=== PATIENT | male | born 1985 | race Caucasian/White ===

== ENCOUNTER → 2019-07-01 | Outpatient (CLI) | payer BC ==
--- NOTE | 2019-07-01 08:35 | US ---
EXAMINATION TYPE: US abdomen complete DATE OF EXAM: 07/01/2019 COMPARISON: NONE CLINICAL HISTORY: R94.5 Abn results liver function studies. Abnormal results of liver function studie s, patient states no other symptoms. EXAM MEASUREMENTS: Liver Length: 17.2 cm Gallbladder Wall: 0.2 cm CBD: 0.3 cm Spleen: 11.3 cm Right Kidney: 11.0 x 5.4 x 5.5 cm Left Kidney: 11.0 x 6.3 x 6.2 cm Pancreas: obscured by overlying midline bowel gas Liver: measures in upper limits of normal, heterogeneous, attenuating, decreased visualization of ve ssels Gallbladder: low level echoes seen within dependant portion of gallbladder, wall measures wnl Evidence for sonographic Schwab's sign: no CBD: visualized portions wnl, limited by overlying bowel gas Spleen: visualized portions wnl, limited by overlying bowel gas Right Kidney: wnl Left Kidney: wnl Upper IVC: wnl Abd Aorta: visualized portions wnl, limited by overlying midline bowel gas IMPRESSION: 1. Hepatomegaly with mild fatty infiltration
== END | disposition home or self-care (01) ==
LOC: RADUSWWP 07:14
PROVIDERS: ATTEND Family Medicine
DX: K76.0 Fatty (change of) liver, not elsewhere classified (principal); R16.0 Hepatomegaly, not elsewhere classified
CPT/HCPCS: 76700

== ENCOUNTER → 2021-08-07 | Outpatient (CLI) | payer BC ==
[2021-08-07 18:44] LABS: Basophils # (A) 0.08 X 10*3/uL (0.00-0.10); Basophils % (A) 0.8 %; Eosinophils # (A) 0.13 X 10*3/uL (0.04-0.35); Eosinophils % (A) 1.2 %; HGB 14.6 g/dL (13.0-17.0); Lymphocytes # (A) 2.56 X 10*3/uL (0.90-5.00); Lymphocytes % (A) 24.5 %; MCH 28.4 pg (27.0-32.0); MCHC 31.1 g/dL (32.0-37.0); MCV 91.4 fL (80.0-97.0); Mean Platelet Volume 9.2 fL (9.5-12.2); Monocytes # (A) 0.71 X 10*3/uL (0.20-1.00); Monocytes % (A) 6.8 %; Neutrophils # (A) 6.92 X 10*3/uL (1.80-7.70); Neutrophils % (A) 66.4 %; Platelet Count 356 X 10*3/uL (140-440); RBC 5.14 X 10*6/uL (4.40-5.60); RDW 13.1 % (11.5-14.5); WBC 10.43 X 10*3/uL (4.50-10.00)
[2021-08-07 20:05] LABS: African American GFR (CKD) 128.7 (60.0-200.0); Albumin 4.6 g/dL (3.8-4.9); Albumin/Globulin Ratio 1.7 (1.60-3.17); Anion Gap 15.8 mmol/L (4.00-12.00); BUN/Creat Ratio 16.44 Ratio (12.00-20.00); Blood Urea Nitrogen 14.8 mg/dL (9.0-27.0); C Reactive Protein 0.9 mg/dL (0.00-0.80); Calcium 9.9 mg/dL (8.7-10.3); Carbon Dioxide 21.2 mmol/L (21.6-31.8); Globulin 2.7 g/dL (1.6-3.3); Potassium 4.4 mmol/L (3.5-5.5); Total Bilirubin 0.4 mg/dL (0.30-1.20); Total Protein 7.3 g/dL (6.2-8.2)
[2021-08-07 20:21] LABS: Hepatitis A Antibody IgM Nonreactive (Nonreactive); Hepatitis B Core IgM Nonreactive (Nonreactive); Hepatitis B Surface Antigen Nonreactive (Nonreactive); Hepatitis C IgG Antibody Nonreactive (Nonreactive)
[2021-08-07 21:13] LABS: Erythrocyte Sedimentation Rate 16 mm/Hr (0-15)
== END | disposition home or self-care (01) ==
LOC: LABWHC1 10:08
PROVIDERS: ATTEND Nurse Practitioner Family
DX: K51.00 Ulcerative (chronic) pancolitis without complications (principal)
CPT/HCPCS: 36415; 80053; 80074; 85025; 85652; 86140

== ENCOUNTER → 2021-09-30 | Outpatient (CLI) | payer BC | END | disposition home or self-care (01) | LOC: LABWHC1 14:59 | PROVIDERS: ATTEND Internal Medicine Gastroenterology | DX: K51.00 Ulcerative (chronic) pancolitis without complications (principal) | CPT/HCPCS: 36415; 86480 ==

== ENCOUNTER 2023-02-28 04:37 | Emergency (ER) | payer BC ==
[2023-02-28 04:42] VITALS: RESP 18; TEMP 98.2
[2023-02-28] MEDS ORDERED: SODIUM CHLORIDE 0.9% 1,000 ML IV STA (04:50)
[2023-02-28] MEDS ORDERED: methylPREDNISolone SOD SUCCI 125 MG/2 ML VIAL IV STA (04:51)
[2023-02-28] MEDS ORDERED: HYDROmorphone 1 MG/ML 1 ML SYRINGE IVP STA (04:51)
--- NOTE | 2023-02-28 04:52 | ED ---
General Adult HPI - General Chief complaint: Abdominal Pain Stated complaint: ABD Pain Time Seen by Provider: 02/28/23 04:44 Source: patient, family, RN notes reviewed, old records reviewed Mode of arrival: wheelchair Limitations: no limitations - History of Present Illness Initial comments: 37-year-old male history of ulcerative colitis who follows with gastroenterology presenting with diffuse abdominal pain. Patient states for approximately one week he's had daily bloody bowel movements. He had gone to bed this evening with generalized abdominal pain which is worsened overnight. He's had an additional bright red rectal bleeding with a small amount of stool. No vomiting. No fever. The pain is generalized throughout his entire abdomen. - Related Data Previous Rx's Medication Instructions Recorded HYDROcodone/APAP 5-325MG [Carey 1 tab PO Q6HR PRN #12 tab 02/28/23 5-325] predniSONE [Deltasone] 40 mg PO DAILY 14 Days #28 tab 02/28/23 Allergies Allergy/AdvReac Type Severity Reaction Status Date / Time Iodinated Contrast Media AdvReac Vomiting Verified 02/28/23 05:37 Review of Systems ROS Statement: Those systems with pertinent positive or pertinent negative responses have been documented in the HPI. ROS Other: All systems not noted in ROS Statement are negative. Past Medical History Additional Past Medical History / Comment(s): Ulcerative colitis History of Any Multi-Drug Resistant Organisms: None Reported Past Psychological History: No Psychological Hx Reported Smoking Status: Never smoker Past Alcohol Use History: None Reported Past Drug Use History: None Reported General Exam Limitations: no limitations General appearance: alert, in no apparent distress Head exam: Present: atraumatic, normocephalic Eye exam: Present: normal appearance, PERRL ENT exam: Present: normal exam Neck exam: Present: normal inspection. Absent: tenderness, meningismus Respiratory exam: Present: normal lung sounds bilaterally. Absent: respiratory distress, wheezes Cardiovascular Exam: Present: regular rate, normal rhythm GI/Abdominal exam: Present: soft, distended, tenderness. Absent: guarding, rebound Extremities exam: Present: normal inspection, normal capillary refill. Absent: pedal edema Neurological exam: Present: alert, oriented X3, CN II-XII intact. Absent: motor sensory deficit Psychiatric exam: Present: normal affect, normal mood Skin exam: Present: warm, dry, intact. Absent: cyanosis, diaphoretic Course Vital Signs 02/28/23 04:40 Temperature 98.2 F Pulse Rate 85 Respiratory 18 Rate Blood Pressure 109/75 O2 Sat by Pulse 98 Oximetry - Reevaluation(s) Reevaluation #1: 02/28/23 07:00 Patient reevaluated, significantly improved Medical Decision Making - Medical Decision Making Was pt. sent in by a medical professional or institution (, YARELY, RETINAL ANGIOGRAPHER, urgent care, hospital, or long term...) When possible be specific @ -No Did you speak to anyone other than the patient for history (EMS, parent, family, police, friend...)? What history was obtained from this source @ -Pts Did you review nursing and triage notes (agree or disagree)? Why? @ -I reviewed and agree with nursing and triage notes Were old charts reviewed (outside hosp., previous admission, EMS record, old EKG, old radiological studies, urgent care reports/EKG's, long term records)? Report findings @ -No old charts were reviewed Differential Diagnosis (chest pain, altered mental status, abdominal pain women, abdominal pain men, vaginal bleeding, weakness, fever, dyspnea, syncope, headache, dizziness, GI bleed, back pain, seizure, CVA, palpatations, mental health, musculoskeletal)? @ Differential Abdominal Pain Men: Appendicitis, cholecystitis, diverticulosis, ischemic bowel, pancreatitis, hepatitis, UTI, gastroenteritis, AAA, incarcerated hernia, bowel obstruction, constipation, inflammatory bowel, hepatitis, peptic ulcer disease, splenic infarction, perforated viscus, testicular torsion, this is not meant to be an all-inclusive list EKG interpreted by me (3pts min.). @ -As above X-rays interpreted by me (1pt min.). @ -None done CT interpreted by me (1pt min.). @ -CT showing inflammation in the terminal ileum, cecum, base of the appendix and ascending colon. Agree with radiologist's interpretation. U/S interpreted by me (1pt. min.). @ -None done What testing was considered but not performed or refused? (CT, X-rays, U/S, labs)? Why? @ -None What meds were considered but not given or refused? Why? @ -None Did you discuss the management of the patient with other professionals (professionals i.e. , YARELY, RETINAL ANGIOGRAPHER, lab, RT, psych nurse, high school social science teacher, technical consultant, teacher, surveillance sensor officer, complex case manager)? Give summary @ -No Was smoking cessation discussed for >3mins.? @ -No Was critical care preformed (if so, how long)? @ -No Were there social determinants of health that impacted care today? How? (Homelessness, low income, unemployed, alcoholism, drug addiction, transportation, low edu. Level, literacy, decrease access to med. care, shelter, rehab)? @ -No Was there de-escalation of care discussed even if they declined (Discuss DNR or withdrawal of care, Hospice)? DNR status @ -No What co-morbidities impacted this encounter? (DM, HTN, Smoking, COPD, CAD, Cancer, CVA, ARF, Chemo, Hep., AIDS, mental health diagnosis, sleep apnea, morbid obesity)? @ Ulcerative colitis Was patient admitted / discharged? Hospital course, mention meds given and route, prescriptions, significant lab abnormalities, going to OR and other pertinent info. @ 37-year-old male with abdominal pain and rectal bleeding, symptoms have progressed over the past one week. Patient receives antiemetics, pain medication and IV steroids in the emergency department. He has a leukocytosis, hemoglobin is stable. He has normal electrolytes. CT shows inflammation within the terminal ileum, cecum and ascending colon. I did offer transfer for i npatient treatment and GI consultation to outside hospital given that we currently do not have GI coverage at this institution. The patient declines and would prefer a trial of oral steroids and pain management. He is given strict return parameters. 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 Undiagnosed new problem with uncertain prognosis? @ -No Drug Therapy requiring intensive monitoring for toxicity (Heparin, Nitro, Insulin, Cardizem)? @ -No Were any procedures done? @ -No Diagnosis/symptom? @ -Abdominal pain, ulcerative colitis Acute, or Chronic, or Acute on Chronic? @ Acute on chronic Uncomplicated (without systemic symptoms) or Complicated (systemic symptoms)? @ Complicated Side effects of treatment? @ -No Exacerbation, Progression, or Severe Exacerbation? @ Severe exacerbation Poses a threat to life or bodily function? How? (Chest pain, USA, SC, pneumonia, PE, COPD, DKA, ARF, appy, cholecystitis, CVA, Diverticulitis, Homicidal, Suicidal, threat to staff... and all critical care pts) @ -No - Lab Data Result diagrams: 02/28/23 05:01 02/28/23 05:01 Lab Results 02/28/23 02/28/23 02/28/23 Range/Units 05:01 05:01 05:01 WBC 14.9 H (3.8-10.6) k/uL RBC 5.14 (4.30-5.90) m/uL Hgb 13.1 (13.0-17.5) gm/dL Hct 40.7 (39.0-53.0) % MCV 79.2 L (80.0-100.0) fL MCH 25.4 (25.0-35.0) pg MCHC 32.1 (31.0-37.0) g/dL RDW 16.5 H (11.5-15.5) % Plt Count 401 (150-450) k/uL MPV 6.9 Neutrophils % 66 % Lymphocytes % 22 % Monocytes % 4 % Eosinophils % 6 % Basophils % 1 % Neutrophils # 9.8 H (1.3-7.7) k/uL Lymphocytes # 3.2 (1.0-4.8) k/uL Monocytes # 0.6 (0-1.0) k/uL Eosinophils # 0.9 H (0-0.7) k/uL Basophils # 0.1 (0-0.2) k/uL Anisocytosis Slight Microcytosis Slight PT 10.5 (9.0-12.0) sec INR 1.0 (<1.2) APTT 22.4 (22.0-30.0) sec Sodium 139 (137-145) mmol/L Potassium 4.0 (3.5-5.1) mmol/L Chloride 105 (98-107) mmol/L Carbon Dioxide 26 (22-30) mmol/L Anion Gap 8 mmol/L BUN 17 (9-20) mg/dL Creatinine 0.86 (0.66-1.25) mg/dL Est GFR (CKD-EPI)AfAm >90 (>60 ml/min/1.73 sqM) Est GFR (CKD-EPI)NonAf >90 (>60 ml/min/1.73 sqM) Glucose 118 H (74-99) mg/dL Plasma Lactic Acid Jonel (0.7-2.0) mmol/L Calcium 9.1 (8.4-10.2) mg/dL Total Bilirubin 0.3 (0.2-1.3) mg/dL AST 29 (17-59) U/L ALT 33 (4-49) U/L Alkaline Phosphatase 52 (38-126) U/L Total Protein 7.3 (6.3-8.2) g/dL Albumin 4.2 (3.5-5.0) g/dL Amylase 60 (30-110) U/L Lipase 189 (23-300) U/L 02/28/23 Range/Units 05:01 WBC (3.8-10.6) k/uL RBC (4.30-5.90) m/uL Hgb (13.0-17.5) gm/dL Hct (39.0-53.0) % MCV (80.0-100.0) fL MCH (25.0-35.0) pg MCHC (31.0-37.0) g/dL RDW (11.5-15.5) % Plt Count (150-450) k/uL MPV Neutrophils % % Lymphocytes % % Monocytes % % Eosinophils % % Basophils % % Neutrophils # (1.3-7.7) k/uL Lymphocytes # (1.0-4.8) k/uL Monocytes # (0-1.0) k/uL Eosinophils # (0-0.7) k/uL Basophils # (0-0.2) k/uL Anisocytosis Microcytosis PT (9.0-12.0) sec INR (<1.2) APTT (22.0-30.0) sec Sodium (137-145) mmol/L Potassium (3.5-5.1) mmol/L Chloride (98-107) mmol/L Carbon Dioxide (22-30) mmol/L Anion Gap mmol/L BUN (9-20) mg/dL Creatinine (0.66-1.25) mg/dL Est GFR (CKD-EPI)AfAm (>60 ml/min/1.73 sqM) Est GFR (CKD-EPI)NonAf (>60 ml/min/1.73 sqM) Glucose (74-99) mg/dL Plasma Lactic Acid Jonel 1.5 (0.7-2.0) mmol/L Calcium (8.4-10.2) mg/dL Total Bilirubin (0.2-1.3) mg/dL AST (17-59) U/L ALT (4-49) U/L Alkaline Phosphatase (38-126) U/L Total Protein (6.3-8.2) g/dL Albumin (3.5-5.0) g/dL Amylase (30-110) U/L Lipase (23-300) U/L Disposition Clinical Impression: Inflammatory bowel disease, Ulcerative colitis Disposition: HOME SELF-CARE Condition: Fair Instructions (If sedation given, give patient instructions): Ulcerative Colitis (ED) Prescriptions: predniSONE [Deltasone] 40 mg PO DAILY 14 Days #28 tab HYDROcodone/APAP 5-325MG [Carey 5-325] 1 tab PO Q6HR PRN #12 tab PRN Reason: Pain Is patient prescribed a controlled substance at d/c from ED?: No Referrals: Rachel Rincon DO [Primary Care Provider] - 1-2 days Sabrina Campos MD [STAFF PHYSICIAN] - 1-2 days Time of Disposition: 06:59
[2023-02-28] MEDS ORDERED: ONDANSETRON 4 MG/2 ML VIAL IVP STA (05:10)
[2023-02-28 05:15] LABS: ALT 33 U/L (4-49); AST 29 U/L (17-59); African American GFR (CKD) >90 (>60 ml/min/1.73 sqM); Albumin 4.2 g/dL (3.5-5.0); Alkaline Phosphatase 52 U/L (38-126); Amylase 60 U/L (30-110); Anion Gap 8 mmol/L; Blood Urea Nitrogen 17 mg/dL (9-20); Calcium 9.1 mg/dL (8.4-10.2); Carbon Dioxide 26 mmol/L (22-30); Chloride 105 mmol/L (98-107); Glucose 118 mg/dL (74-99); Lipase 189 U/L (23-300); Non-African American GFR(CKD) >90 (>60 ml/min/1.73 sqM); Sodium 139 mmol/L (137-145); Total Bilirubin 0.3 mg/dL (0.2-1.3); Total Protein 7.3 g/dL (6.3-8.2)
[2023-02-28 05:18] LABS: Anisocytosis Slight; Basophils # (A) 0.1 k/uL (0-0.2); Basophils % (A) 1 %; Eosinophils # (A) 0.9 k/uL (0-0.7); Eosinophils % (A) 6 %; HCT 40.7 % (39.0-53.0); HGB 13.1 gm/dL (13.0-17.5); Lymphocytes # (A) 3.2 k/uL (1.0-4.8); Lymphocytes % (A) 22 %; MCH 25.4 pg (25.0-35.0); MCHC 32.1 g/dL (31.0-37.0); MCV 79.2 fL (80.0-100.0); Mean Platelet Volume 6.9; Microcytosis Slight; Monocytes # (A) 0.6 k/uL (0-1.0); Monocytes % (A) 4 %; Neutrophils # (A) 9.8 k/uL (1.3-7.7); Neutrophils % (A) 66 %; Platelet Count 401 k/uL (150-450); RBC 5.14 m/uL (4.30-5.90); RDW 16.5 % (11.5-15.5); WBC 14.9 k/uL (3.8-10.6)
[2023-02-28 05:24] LABS: Partial Thromboplastin Time 22.4 sec (22.0-30.0); Prothrombin Time 10.5 sec (9.0-12.0)
[2023-02-28] MEDS ORDERED: HYDROmorphone 0.5 MG/0.5 ML SYRINGE IVP STA (06:23)
--- NOTE | 2023-02-28 06:47 | CT ---
EXAMINATION TYPE: CT abdomen pelvis w con DATE OF EXAM: 02/28/2023 COMPARISON: NONE HISTORY: 37-year-old male with abdominal pain TECHNIQUE: Contiguous axial scanning of the abdomen and pelvis following administration of 100 ml Iso leatha 300 IV contrast. Scanning was delayed by 10 minutes due to patient emesis of the oral contrast. Additional delayed images through the kidneys for complete scanning through the liver and coronal/sag ittal reconstructions performed. CT DLP: 2146.4 mGycm Automated exposure control for dose reduction was used. FINDINGS: The heart is upper limits of normal in size without pericardial effusion. Lung bases clear without pl eural effusion. There is a small hiatal hernia. Visualized gallbladder, liver, adrenal glands, kidneys, spleen, and pancreas show no gross anomaly. There is some mild fat stranding seen scattered throughout the omentum. Numerous scattered nonenlarge d and borderline enlarged mesenteric lymph nodes measuring up to 1.0 cm. Likely reactive/post inflamm atory. No dilated small bowel or free air. There is moderate inflammatory thickening at the level of the ileocecal junction, terminal ileum, and cecum extending into the lower ascending colon. Inflammatory thickening extends to involve the base of the appendix is well. Tracking inflammatory edema is present just adjacent. Submucosal fat deposition throughout the entire colon. Bladder nondistended. Prostate gland measures 4.0 cm wide. No abnormal fluid collection in the pelvis or pelvic lymphadenopathy. Bones: No osseous destructive process. IMPRESSION: 1. MODERATE INFLAMMATORY CHANGES CENTERED AT THE TERMINAL ILEUM, ILEOCECAL JUNCTION, CECUM, AND LOWER ASCENDING COLON. CORRELATE FOR INFLAMMATORY ENTEROCOLITIS GIVEN PATIENT'S HISTORY OF UC. MODERATE IN FLAMMATORY EDEMA TRACKS DOWN IN THE RIGHT LOWER QUADRANT. NO ABSCESS OR FREE AIR. 2. INFLAMMATION EXTENDS TO THE BASE OF THE APPENDIX. INFLAMMATORY CHANGES INVOLVING THE APPENDIX APPE AR TO BE A SECONDARY PROCESS RATHER THAN A PRIMARY ACUTE APPENDICITIS. 3. THE PRESENCE OF SUBMUCOSAL FAT DEPOSITION THROUGHOUT THE COLON SUGGESTS RECURRENT BOUTS OF PRIOR I NFLAMMATION. 4. SMALL HIATAL HERNIA. MILD PROSTATOMEGALY AT 4.0 CM WIDE.
[2023-02-28 07:24] VITALS: BP 126/78; PULSE 80
== END 2023-02-28 07:24 | disposition home or self-care (01) ==
LOC: EC 04:37
DX: K51.90 Ulcerative colitis, unspecified, without complications (principal); Z91.041 Radiographic dye allergy status
CPT/HCPCS: 36415; 80053; 82150; 83605; 83690; 85025; 85610; 85730; 74177; 99284; 96374; 96375 ×2; 96376; 96361; J2930; J2405; J1170 ×2; Q9967

== ENCOUNTER → 2023-06-14 | Outpatient (CLI) | payer BC ==
--- NOTE | 2023-06-14 11:25 | CT ---
EXAMINATION TYPE: CT abdomen pelvis wo con CT DLP: 1100.5 mGycm, Automated exposure control for dose reduction was used. DATE OF EXAM: 06/14/2023 11:14 AM COMPARISON: CT abdomen pelvis most recent from . CLINICAL INDICATION:Male, 37 years old with history of R10.9 UNSPECIFIED ABDOMINAL PAIN; abdominal pa in, RLQ pain TECHNIQUE: Standard CT of the abdomen and pelvis following the administration of oral contrast. Cor onal and sagittal reformats were performed. Patient had episode of vomiting after receiving 100 mL of Isovue-300 intravenously. Scan was aborted at that time. Noncontrast exam was performed. Patient davon uld be premedicated for further examinations. FINDINGS: LOWER CHEST: Trace right pleural effusion with associated atelectasis. ABDOMEN LIVER: Unremarkable noncontrast appearance GALLBLADDER AND BILE DUCTS: Unremarkable noncontrast appearance PANCREAS: Unremarkable noncontrast appearance SPLEEN: Unremarkable noncontrast appearance ADRENAL GLANDS: Unremarkable noncontrast appearance. KIDNEYS AND URETERS: No evidence of hydronephrosis or renal calculus. PELVIS BLADDER: Unremarkable REPRODUCTIVE: Unremarkable. ABDOMEN & PELVIS STOMACH AND BOWEL: Stomach and duodenum are unremarkable. Enteric contrast reaches the mid small florentin l. Inflammatory changes with wall thickening again identified in the region of the terminal ileum and surrounding mesentery. No fluid collection identified. No obvious fistula. The appendix appears with in normal limits. Submucosal fat deposition identified throughout the entire colon again. No evidence of bowel obstruction. PERITONEUM: No evidence of pneumoperitoneum or free fluid. VASCULATURE: No evidence of aortic aneurysm. MUSCULOSKELETAL: No acute osseous abnormalities LYMPH NODES: No gross evidence for lymphadenopathy. SOFT TISSUE/ABDOMINAL WALL: Small fat filled umbilical hernia. IMPRESSION: 1. Moderate inflammatory changes again centered at the terminal ileum. Etiologies include infectious /inflammatory process such as ulcerative colitis. No abscess identified. 2. Similar submucosal fat deposition throughout the colon suggesting prior or recurrent bouts of infl ammation. 3. Trace right pleural effusion with associated atelectasis.
== END | disposition home or self-care (01) ==
LOC: RADCTMAIN 08:05
PROVIDERS: ATTEND Internal Medicine Gastroenterology
DX: K63.89 Other specified diseases of intestine (principal); J90 Pleural effusion, not elsewhere classified; J98.11 Atelectasis
CPT/HCPCS: 74176; Q9967

== ENCOUNTER 2023-06-20 10:48 | Day surgery (SDC) | payer BC ==
[2023-06-16 15:02] VITALS: BMI 34.0
[2023-06-20 11:21] VITALS: TEMP 97.8
[2023-06-20] MEDS ORDERED: LACTATED RINGERS 1,000 ML IV ONE (11:25)
[2023-06-20] MEDS ORDERED: LIDOCAINE 1% (10MG/ML) FOR IV START INTRADERMA ONE (11:25)
[2023-06-20 11:35] LABS: Glucose,Whole Blood 88 mg/dL (70-110)
[2023-06-20] MEDS ORDERED: PROPOFOL 10 MG/ML 20 ML VIAL IV ONE (12:09)
--- NOTE | 2023-06-20 12:29 | P.PCN ---
Date of Procedure: 06/20/23 Procedure(s) Performed: BRIEF HISTORY: Patient is a 37-year-old pleasant white male scheduled for an elective colonoscopy as a part of evaluation of severe lower abdominal pain and diarrhea for the last several months duration. He was diagnosed with severe ulcerative colitis in May 2021 and has been maintained on Entyvioinfusions since October 2021. Recently his been having severe lower abdominal pain and hence and had a CT of abdomen and pelvis on a week ago that showed moderate inflammatory changes involving the terminal ileum as well as in the colon. He is presently on prednisone 30 mg daily and feeling much better. PROCEDURE PERFORMED: Colonoscopy with multiple biopsies. PREOPERATIVE DIAGNOSIS: History of ulcerative colitis diagnosed in 2020, severe abdominal pain and diarrhea. IV sedation per Anesthesia. PROCEDURE: After informed consent was obtained, the patient, was brought into the endoscopy unit. IV sedation was administered by Anesthesia under continuous monitoring. Digital rectal examination was normal. Initially the Olympus CF-160 flexible video colonoscope was then inserted in the rectum, gradually advanced into the cecum without any difficulty. Careful examination was performed as the scope was gradually being withdrawn. Ileocecal valve and the appendiceal orifice were visualized and appeared normal. Prep was excellent. Multiple attempts at intubating the terminal ileum wasn't successful but part of the terminal ileum was visualized and appeared normal. Mucosa of the cecum, ascending colon, transverse colon, descending colon, sigmoid colon, and rectum had mild diffuse erythema more predominant in the rectum but no evidence of ulcerations or erosions identified. Random biopsies were done from cecum to rectum.. Retroflexion was performed in the rectum and no lesions were seen. The patient tolerated the procedure well. IMPRESSION: Mild erythema throughout the entire colon more predominant in the rectum consistent with mild active colitis Terminal ileum appeared normal RECOMMENDATIONS: Findings of this examination were discussed with the patient as well as his family. He will continue with Entyvio nfusions every 8 weeks. Start tapering prednisone by 5 mg every 2 weeks. Follow up in office in 2 months..
[2023-06-20 12:41] VITALS: RESP 20
[2023-06-20 12:54] VITALS: BP 118/68; PULSE 81
== END 2023-06-20 13:20 | disposition home or self-care (01) ==
LOC: ORWHC2ENDO 10:48
PROVIDERS: ATTEND Internal Medicine Gastroenterology
DX: K51.90 Ulcerative colitis, unspecified, without complications (principal); K51.20 Ulcerative (chronic) proctitis without complications; Z91.041 Radiographic dye allergy status; Z79.899 Other long term (current) drug therapy
CPT/HCPCS: 88305; 45380; J2704

== ENCOUNTER 2023-07-23 08:35 | Inpatient (IN) | payer BC ==
[2023-07-23] MEDS ORDERED: SODIUM CHLORIDE 0.9% 500 ML 500 ML IV STA (09:00)
[2023-07-23] MEDS ORDERED: SODIUM CHLORIDE 0.9% 1,000 ML IV STA (09:00)
[2023-07-23] MEDS ORDERED: HYDROmorphone 0.5 MG/0.5 ML SYRINGE IVP STA ×2 (09:00→14:59)
[2023-07-23] MEDS ORDERED: ONDANSETRON 4 MG/2 ML VIAL IVP STA (09:00)
[2023-07-23 09:17] LABS: Anisocytosis Slight; Basophils # (A) 0.1 k/uL (0-0.2); Basophils % (A) 1 %; Eosinophils # (A) 0.3 k/uL (0-0.7); Eosinophils % (A) 2 %; HCT 44.6 % (39.0-53.0); HGB 14.3 gm/dL (13.0-17.5); Lymphocytes % (A) 11 %; MCH 25.4 pg (25.0-35.0); MCHC 32.1 g/dL (31.0-37.0); MCV 79.3 fL (80.0-100.0); Mean Platelet Volume 6.6; Microcytosis Slight; Monocytes # (A) 0.7 k/uL (0-1.0); Monocytes % (A) 4 %; Neutrophils # (A) 14.5 k/uL (1.3-7.7); Neutrophils % (A) 82 %; Platelet Count 434 k/uL (150-450); RBC 5.63 m/uL (4.30-5.90); RDW 16.3 % (11.5-15.5); WBC 17.8 k/uL (3.8-10.6)
[2023-07-23 09:31] LABS: ALT 19 U/L (4-49); AST 19 U/L (17-59); African American GFR (CKD) >90 (>60 ml/min/1.73 sqM); Albumin 4.3 g/dL (3.5-5.0); Alkaline Phosphatase 52 U/L (38-126); Anion Gap 15 mmol/L; Blood Urea Nitrogen 14 mg/dL (9-20); Calcium 9.4 mg/dL (8.4-10.2); Carbon Dioxide 20 mmol/L (22-30); Chloride 100 mmol/L (98-107); Glucose 140 mg/dL (74-99); Lipase 1427 U/L (23-300); Magnesium 2.1 mg/dL (1.6-2.3); Non-African American GFR(CKD) >90 (>60 ml/min/1.73 sqM); Potassium 4.3 mmol/L (3.5-5.1); Sodium 135 mmol/L (137-145); Total Protein 7.5 g/dL (6.3-8.2)
--- NOTE | 2023-07-23 09:43 | ED ---
Chest Pain HPI - General Chief Complaint: Chest Pain Stated Complaint: chest pain Time Seen by Provider: 07/23/23 08:47 Source: patient, RN notes reviewed Mode of arrival: ambulatory Limitations: no limitations - History of Present Illness Initial Comments: 37-year-old male presents emergency Department chief complaint of abdominal pain. Patient states been having patient on the last few days. Patient states that has localized more to the right lower quadrant. Patient does have known ulcerative colitis and has infusions every [address] Campos. Patient states he did have some chest discomfort and palpitations significant other states his heart rate was elevated as pulse ox was low when his and bleeding. Denies any history of PE or DVT. Denies any leg pain or leg swelling. - Related Data Home Medications Medication Instructions Recorded Confirmed Citalopram Hydrobromide [CeleXA] 20 mg PO DAILY 06/16/23 06/16/23 Dextroamphetamine/Amphetamine 20 mg PO BID 06/16/23 06/16/23 [Adderall] Semaglutide [Wegovy] 2.4 mg SQ WEEKLY 06/16/23 06/16/23 Previous Rx's Medication Instructions Recorded HYDROcodone/APAP 5-325MG [[place] 1 tab PO Q6HR PRN 3 Days #12 tab 02/28/23 5-325] predniSONE [Deltasone] 40 mg PO DAILY 14 Days #28 tab 02/28/23 Allergies Allergy/AdvReac Type Severity Reaction Status Date / Time Iodinated Contrast Media AdvReac Vomiting Verified 07/23/23 08:42 Review of Systems ROS Statement: Those systems with pertinent positive or pertinent negative responses have been documented in the HPI. ROS Other: All systems not noted in ROS Statement are negative. EKG Findings - EKG Comments: EKG Findings:: EKG performed at a 849 sinus rhythm rate 95 HI 163/93 QT/QTC 3:30/336 inverted T waves in lead 3 - EKG Results: EKG: interpreted by FELISA Past Medical History Additional Past Medical History / Comment(s): Ulcerative colitis History of Any Multi-Drug Resistant Organisms: None Reported Additional Past Surgical History / Comment(s): colonoscopy Past Anesthesia/Blood Transfusion Reactions: No Reported Reaction Additional Past Anesthesia/Blood Transfusion Reaction / Comment(s): no blood transfusion Past Psychological History: ADD/ADHD, Anxiety Smoking Status: Never smoker Past Alcohol Use History: None Reported Past Drug Use History: None Reported General Exam Limitations: no limitations General appearance: alert, in no apparent distress Head exam: Present: atraumatic, normocephalic, normal inspection Eye exam: Present: normal appearance, PERRL, EOMI. Absent: scleral icterus, conjunctival injection, periorbital swelling ENT exam: Present: normal exam, normal oropharynx, mucous membranes moist Neck exam: Present: normal inspection, full ROM. Absent: tenderness, meningismus, lymphadenopathy Respiratory exam: Present: normal lung sounds bilaterally. Absent: respiratory distress, wheezes, rales, rhonchi, stridor Cardiovascular Exam: Present: regular rate, normal rhythm, normal heart sounds. Absent: systolic murmur, diastolic murmur, rubs, gallop, clicks GI/Abdominal exam: Present: soft, tenderness, normal bowel sounds. Absent: distended, guarding, rebound, rigid Neurological exam: Present: alert, oriented X3 Course Vital Signs 07/23/23 07/23/23 07/23/23 08:40 09:42 10:00 Temperature 98.1 F Pulse Rate 105 H 97 102 H Respiratory 20 18 18 Rate Blood Pressure 102/66 122/83 115/84 O2 Sat by Pulse 96 92 L 96 Oximetry Chest Pain MDM - MDM Was pt. sent in by a medical professional or institution ([facility], [employer], urgent care, hospital, or [facility]...) When possible be specific @ -No Did you speak to anyone other than the patient for history (EMS, parent, family, police, friend...)? What history was obtained from this source @ -No Did you review nursing and triage notes (agree or disagree)? Why? @ -I reviewed and agree with nursing and triage notes Were old charts reviewed (outside hosp., previous admission, EMS record, old EKG, old radiological studies, urgent care reports/EKG's, [facility] records)? Report findings @ -Reviewed bilaterally studies Differential Diagnosis (chest pain, altered mental status, abdominal pain women, abdominal pain men, vaginal bleeding, weakness, fever, dyspnea, syncope, headache, dizziness, GI bleed, back pain, seizure, CVA, palpatations, mental health, musculoskeletal)? @ -nDifferential Abdominal Pain Men: Appendicitis, cholecystitis, diverticulosis, ischemic bowel, pancreatitis, hepatitis, UTI, gastroenteritis, AAA, incarcerated hernia, bowel obstruction, constipation, inflammatory bowel, hepatitis, peptic ulcer disease, splenic infarction, perforated viscus, testicular torsion, this is not meant to be an all-inclusive list EKG interpreted by me (3pts min.). @ -as above X-rays interpreted by me (1pt min.). @ -None done CT interpreted by me (1pt min.). @ -CT anterior chest no evidence of large PE, CT abdomen and pelvis contrast showing colitis changes, edematous pancreatitis. U/S interpreted by me (1pt. min.). @ -None done What testing was considered but not performed or refused? (CT, X-rays, U/S, labs)? Why? @ -None What meds were considered but not given or refused? Why? @ -None Did you discuss the management of the patient with other professionals (professionals i.e. , PA, [employer], lab, RT, psych nurse, social sciences department chair, recreation therapist, teacher, transportation officer, porter sample case)? Give summary @ -[EMH for admission secondary to acute pancreatitis Was smoking cessation discussed for >3mins.? @ -No Was critical care preformed (if so, how long)? @ -No Were there social determinants of health that impacted care today? How? (Homelessness, low income, unemployed, alcoholism, drug addiction, transportation, low edu. Level, literacy, decrease access to med. care, fdc, rehab)? @ -No Was there de-escalation of care discussed even if they declined (Discuss DNR or withdrawal of care, Hospice)? DNR status @ -No What co-morbidities impacted this encounter? (DM, HTN, Smoking, COPD, CAD, Cancer, CVA, ARF, Chemo, Hep., AIDS, mental health diagnosis, sleep apnea, morbid obesity)? @ -None Was patient admitted / discharged? Hospital course, mention meds given and route, prescriptions, significant lab abnormalities, going to OR and other pertinent info. @ -Admitted patient be made for acute pancreatitis, ulcerative colitis exacerbation, evaluation by GI, pain control and will IV fluids and antiemetics. Undiagnosed new problem with uncertain prognosis? @ -No Drug Therapy requiring intensive monitoring for toxicity (Heparin, Nitro, Insulin, Cardizem)? @ -No Were any procedures done? @ -No Diagnosis/symptom? @ -Acute pancreatitis, ulcerative colitis Acute, or Chronic, or Acute on Chronic? @ -Acute Uncomplicated (without systemic symptoms) or Complicated (systemic symptoms)? @ -Complicated Side effects of treatment? @ -No Exacerbation, Progression, or Severe Exacerbation? @ -Yes Poses a threat to life or bodily function? How? (Chest pain, [place], [place], pneumonia, PE, COPD, DKA, ARF, appy, cholecystitis, CVA, Diverticulitis, Homicidal, Suicidal, threat to staff... and all critical care pts) @ -No Disposition Clinical Impression: Acute pancreatitis, Exacerbation of ulcerative colitis, Chest pain Disposition: ADMITTED IP TO THIS HOSP Condition: Fair Referrals: Rachel Rincon DO [Primary Care Provider] - 1-2 days Time of Disposition: 11:42
[2023-07-23 09:49] LABS: INR 1.2 (<1.2); Partial Thromboplastin Time 27.8 sec (22.0-30.0); Prothrombin Time 12.3 sec (10.0-12.5)
[2023-07-23] MEDS ORDERED: HYDROmorphone 1 MG/ML 1 ML SYRINGE IVP STA (09:56)
[2023-07-23] MEDS ORDERED: METOCLOPRAMIDE 5 MG/ML 2 ML VIAL IVP STA (09:58)
[2023-07-23] MEDS ORDERED: diphenhydrAMINE 50 MG/ML 1 ML VIAL IVP STA (09:58)
[2023-07-23] MEDS ORDERED: FAMOTIDINE 20 MG/2 ML VIAL IV STA (09:59)
--- NOTE | 2023-07-23 10:57 | CT ---
EXAMINATION TYPE: CT chest angio for PE DATE OF EXAM: 07/23/2023 COMPARISON: NONE HISTORY: Chest pain, elevated d-dimer CT DLP: 461.1 mGycm. Automated Exposure Control for Dose Reduction was Utilized. CONTRAST: CTA scan of the thorax is performed with IV Contrast, patient injected with 100 mL of Isovue 370, pul monary embolism protocol. MIP Images are created on CT scanner and reviewed. FINDINGS: LUNGS: Low lung volumes are present with mild to moderate dependent atelectasis in both lower lobes. No pleural effusion or pneumothorax seen bilaterally. MEDIASTINUM: Suboptimal study with most dense contrast in the SVC and more dense contrast in the aort a versus pulmonary arteries. No central saddle pulmonary embolism is present. Suboptimal evaluation o f peripheral vessels is noted. No thoracic aortic aneurysm or dissection. There are no greater than 1 cm hilar or mediastinal lymph nodes. No cardiomegaly or pericardial effusion is seen. OTHER: Scoliotic curvature in the upper thoracic spine is seen. Please refer to same day CT abdomen a nd pelvis report for complete details on the upper abdomen. IMPRESSION: 1. Suboptimal study without central saddle pulmonary embolism. Cannot exclude segmental and subsegmen alessandro PE on this exam. 2. Low lung volumes with bilateral lower lung atelectasis.
--- NOTE | 2023-07-23 11:04 | CT ---
EXAMINATION TYPE: CT abdomen pelvis w con DATE OF EXAM: 07/23/2023 COMPARISON: Prior CT June 14, 2023 HISTORY: Abdomen pain, pancreatitis CT DLP: 1592.5 mGycm, Automated Exposure Control for Dose Reduction was Utilized. CONTRAST: CT scan of the abdomen and pelvis is performed without oral and with IV Contrast, patient injected wi th 100 mL of Isovue 370. FINDINGS: LUNG BASES: Please refer to same day CTA chest report for complete details on the lung bases. LIVER/GB: Liver is diffusely low dense suggesting fatty infiltrative hepatocellular disease. PANCREAS: Pancreas is more prominent in size with [id number] surrounding fluid and fat strandin g greatest involving the body and tail. No well-formed fluid collection is seen. No area of nonenhanc ement noted. SPLEEN: No significant abnormality is seen. ADRENALS: No significant abnormality is seen. KIDNEYS: No significant abnormality is seen. BOWEL: There is [id number] wall thickening involving small bowel loops in the right mid to lowe r abdomen with moderate ill-defined fluid and fat stranding in the right abdomen. The cecum has moder ate concentric wall thickening. The appendix remains stable in size measuring 6 to 7 mm which is perh aps minimally enlarged. Fat stranding does not appear to be localized to the level of the appendix. N o well-formed fluid collection or abscess clearly seen. No free air is noted. Mild to moderate wall t hickening involving the left colon extending into the sigmoid colon. PROSTATE/SEMINAL VESICLES: No gross abnormality seen. LYMPH NODES: No greater than 1cm abdominal or pelvic lymph nodes are appreciated. OSSEOUS STRUCTURES: No significant abnormality is seen. OTHER: No significant additional abnormality is seen. IMPRESSION: 1. There is recurrent enterocolitis centered in the right mid to lower abdomen involving distal small bowel loops and cecum. Differential includes infectious, inflammatory, and less likely ischemic etio logies. 2. CT findings consistent with uncomplicated acute interstitial edematous pancreatitis are also felt present as detailed above.
[2023-07-23] MEDS ORDERED: NALOXONE 0.4 MG/ML 1 ML VIAL IV PRN (11:43)
[2023-07-23] MEDS ORDERED: ONDANSETRON 4 MG/2 ML VIAL IVP PRN (11:43)
[2023-07-23] MEDS ORDERED: HYDROmorphone 0.5 MG/0.5 ML SYRINGE IVP PRN (11:43)
[2023-07-23] MEDS ORDERED: SODIUM CHLORIDE 0.9% 1,000 ML IV SCH (11:45)
[2023-07-23 12:01] LABS: Appearance,Urine Clear (Clear); Bilirubin,Urine Negative (Negative); Blood,Urine Negative (Negative); Color,Urine Colorless; Glucose,Urine (UA) Negative (Negative); Ketones,Urine Negative (Negative); Leukocyte Esterase,Urine Negative (Negative); Nitrite,Urine Negative (Negative); PH, Urine 5.5 (5.0-8.0); Protein,Urine Negative (Negative); Specific Gravity,Urine 1.027 (1.001-1.035); Urobilinogen,Urine <2.0 mg/dL (<2.0)
[2023-07-23] MEDS: HYDROmorphone 1 MG/ML 1 ML SYRINGE IVP PRN ×2 (14:40→18:10)
[2023-07-23] MEDS: SODIUM CHLORIDE 0.9% 1,000 ML IV SCH ×2 (15:21→22:01)
--- NOTE | 2023-07-23 18:55 | P.HPIM ---
History of Present Illness This is a pleasant 37 years old male with past medical history of depression and obesity on wegovy Presents because of abdominal pain over few days duration, this is the fourth time presents with similar presentation where he was diagnosed with acute pancreatitis from the beginning of the summer. These episodes started to happen after he started taking medication wegovy for weight loss, his abdominal pain and tenderness is severe, he associated with vomiting but he does not have diarrhea or bowel movement yet. He had colonic spasm before which his doctor prescribed Bentyl with partial improvement but this time is different. He had no bowel movement since Monday. Denies any urinary symptoms, no chest pain or dyspnea. No headache weakness or numbness or dizziness. Patient denies drinking alcohol. He follows with Dr. Campos as an outpatient He is mildly tachycardic Labs showed leukocytosis of 17.8. CBC is unremarkable. INR is 1.2. D-dimer is elevated 1.5. BMP and liver enzymes were not elevated. Lipase as high 1427. Analysis is negative for infection. CTA of the chest: No signs of pulmonary embolism. Bilateral lower lobe atelectasis. CT of the abdomen and pelvis: The right mid to lower abdomen involving distal small bowel loops of cecum. Also 5 is consistent with uncomplicated acute interstitial edematous pancreatitis Review of Systems Review of systems CONSTITUTIONAL: No fever, no malaise, no fatigue. HEENT: No recent visual problems or hearing problems. Denied any sore throat. CARDIOVASCULAR: No orthopnea, PND, no palpitations, no syncope. PULMONARY: No shortness of breath, no cough, no hemoptysis. GASTROINTESTINAL: No diarrhea, . Normoactive bowel sounds. NEUROLOGICAL: No headaches, no weakness, no numbness. HEMATOLOGICAL: Denies any bleeding or petechiae. GENITOURINARY: Denies any burning micturition, frequency, or urgency. MUSCULOSKELETAL/RHEUMATOLOGICAL: Denies any joint pain, swelling, or any muscle pain. ENDOCRINE: Denies any polyuria or polydipsia. Past Medical History Additional Past Medical History / Comment(s): Ulcerative colitis History of Any Multi-Drug Resistant Organisms: None Reported Additional Past Surgical History / Comment(s): colonoscopy Past Anesthesia/Blood Transfusion Reactions: No Reported Reaction Additional Past Anesthesia/Blood Transfusion Reaction / Comment(s): no blood transfusion Past Psychological History: ADD/ADHD, Anxiety Smoking Status: Never smoker Past Alcohol Use History: None Reported Past Drug Use History: None Reported Medications and Allergies Home Medications Medication Instructions Recorded Confirmed Type Dextroamphetamine/Amphetamine 20 mg PO BID 06/16/23 07/23/23 History [Adderall] RX: Citalopram Hydrobromide 20 mg PO DAILY 06/16/23 07/23/23 History [CeleXA] Semaglutide [Wegovy] 2.4 mg SQ WE 06/16/23 07/23/23 History Dicyclomine [Bentyl] 10 mg PO TID PRN 07/23/23 07/23/23 History Allergies Allergy/AdvReac Type Severity Reaction Status Date / Time Iodinated Contrast Media AdvReac Vomiting Verified 07/23/23 11:58 Physical Exam Vitals: Vital Signs Temp Pulse Resp BP Pulse Ox 07/23/23 10:00 102 H 18 115/84 96 07/23/23 09:42 97 18 122/83 92 L 07/23/23 08:40 98.1 F 105 H 20 102/66 96 Intake and Output 07/22/23 07/23/23 07/23/23 22:59 06:59 14:59 Other: Weight 104.326 kg GENERAL: The patient is alert and oriented x3, not in any acute distress. Well developed, well nourished. HEENT: Pupils are round and equally reacting to light. EOMI. No scleral icterus. No conjunctival pallor. Normocephalic, atraumatic. No pharyngeal erythema. No thyromegaly. CARDIOVASCULAR: S1 and S2 present. No murmurs, rubs, or gallops. PULMONARY: Chest is clear to auscultation, no wheezing , no crackles. -ABDOMEN: Soft, epigastric tenderness with no rebound tenderness, nondistended, normoactive bowel sounds. No palpable organomegaly. MUSCULOSKELETAL: No joint swelling or deformity. EXTREMITIES: No cyanosis, clubbing, or pedal edema. NEUROLOGICAL: Gross neurological examination did not reveal any focal deficits. SKIN: No rashes. no petechiae. Results CBC & Chem 7: 07/23/23 09:05 07/23/23 09:05 Labs: Abnormal Lab Results - Last 24 Hours (Table) 07/23/23 07/23/23 07/23/23 Range/Units 09:05 09:05 09:05 WBC 17.8 H (3.8-10.6) k/uL MCV 79.3 L (80.0-100.0) fL RDW 16.3 H (11.5-15.5) % Neutrophils # 14.5 H (1.3-7.7) k/uL INR 1.2 H (<1.2) D-Dimer 1.59 H (<0.60) mg/L FEU Sodium 135 L (137-145) mmol/L Carbon Dioxide 20 L (22-30) mmol/L Glucose 140 H (74-99) mg/dL Lipase 1427 H (23-300) U/L Assessment and Plan Assessment: Recurrent Acute pancreatitis most likely secondary to wegovy Distal small bowel and cecum inflammation most likely secondary to above Obesity with BMI 34 History of depression Plan: Continue with IV fluid, increased rectum 200 mL per hour Pain medication with Dilaudid Bowel rest GI consult Patient advised to avoid wegovy and he agrees to stop taking it Labs and medication were reviewed.. Continue same treatment. Continue with symptomatic treatment. Resume home medication. Monitor labs and vitals. DVT and GI prophylaxis. Further recommendations as per clinical course of the patient DVT prophylaxis: Subcutaneous heparin GI Prophylaxis: Pepcid Prognosis is guarded
[2023-07-23] MEDS: ACETAMINOPHEN TAB 500 MG TAB PO PRN (19:43)
[2023-07-23] MEDS ORDERED: SODIUM CHLORIDE 0.9% 1,000 ML IV ONE (20:06)
[2023-07-23] MEDS ORDERED: LORazepam 2 MG/ML INJ IV STA (20:41)
--- NOTE | 2023-07-23 21:42 | XR ---
EXAMINATION TYPE: XR chest 2V DATE OF EXAM: 07/23/2023 9:31 PM CLINICAL INDICATION:Male, 37 years old with history of shortness of breathe; [facility] COMPARISON: 07/23/2023 CT TECHNIQUE: XR chest 2V Frontal and lateral views of the chest. FINDINGS: Lungs/Pleura: There is no evidence of pleural effusion, focal consolidation, or pneumothorax. Pulmonary vascularity: Unremarkable. Heart/mediastinum: Cardiomediastinal silhouette is unremarkable. Musculoskeletal: No acute osseous pathology. IMPRESSION: Low lung volumes, o acute cardiopulmonary disease/process.
[2023-07-23] MEDS: FAMOTIDINE 20 MG/2 ML VIAL IV SCH (22:00)
[2023-07-23] MEDS: HEPARIN SODIUM,PORCINE 5,000 UNIT/ML 1 ML VIAL SQ SCH (22:00)
[2023-07-24] MEDS: SODIUM CHLORIDE 0.9% 1,000 ML IV SCH ×4 (00:45→17:23)
[2023-07-24] MEDS ORDERED: LORazepam 2 MG/ML INJ IV PRN (00:55)
--- NOTE | 2023-07-24 01:40 | P.CNPUL ---
History of Present Illness Consult date: 07/24/23 Requesting physician: Kunal Irwin Reason for consult: dyspnea Chief complaint: abdominal pain History of present illness: I am seeing this patient in consultation today 07/24/2023 in the emergency room after the patient presented with acute abdominal pain. Patient is a 38-year-old white male with past medical history significant for ulcerative colitis, obesity, obstructive sleep apnea with home CPAP device, and ADHD. Patient does have history of ulcerative colitis in which he follows with Dr. Campos, and receives Entyvio injections q 8 weeks. Patient is also taking semaglutide for weight loss. Patient presented to the emergency room yesterday morning complaining of progressively worsening right lower quadrant abdominal pain over the last couple days. Bowel movements have been fairly normal for him, however, has not had a bowel movement in a couple days. Denies any nausea or vomiting, or bleeding. Denies significant alcohol intake. He was also having fevers, tachycardic, and short of breath while at home. Denies any history of asthma or COPD. Denies cough or hemoptysis. He states that he is to children were sick with an upper respiratory infection earlier this week. Abdominal CT on arrival was consistent with uncomplicated acute interstitial edematous pancreatitis, and there was also recurrent enterocolitis centered in the right mid to lower abdomen involving the distal small bowel loops and cecum. Since the patient was also experiencing some shortness of breath and mild chest discomfort, a chest CTA was ordered which did not demonstrate any central saddle pulmonary embolism. Cannot exclude segmental or subsegmental PE. There were low lung volumes and bilateral lower lung atelectasis. Patient is currently lying in bed, on 3 L/m nasal cannula, reporting some improvement in his abdominal pain. He has not been taking deep breaths due to his abdominal pain. Pain is currently being controlled with when necessary Dilaudid. He is diaphoretic. He is tachycardic an d tachypneic. Blood pressure is normotensive. On arrival, he did have fever with a T-max of 100.4F. CBC on arrival showed some leukocytosis with a WBC count of17.8, hemoglobin 14.3, hematocrit 44.6, platelets 434. CMP on arrival showed a sodium 135, potassium 4.3, chloride 100, serum bicarbonate 20, BUN 14, creatinine 0.96, glucose 140. LFTs were not elevated. Troponins less than 0.012. NT proBNP was low. Lipase is elevated at 1427 consistent with his diagnosis of acute pancreatitis.patient is being fluid resuscitated and has received a 2.5 L normal saline bolus along with normal saline which is infusing at 200 ML's per hour. Negative for influenza, RSV, COVID-19. Patient is going to be admitted to the cardiac stepdown unit. Review of Systems REVIEW OF SYSTEMS: CONSTITUTIONAL: admits weight loss with Wegovy EYES: Denies change in vision. EARS, NOSE, MOUTH, THROAT: Denies headaches, denies sore throat. CARDIOVASCULAR: Admits some vague chest tightness and heart palpitations. Denies any lightheadedness or syncopal events. RESPIRATORY: Denies cough, congestion or hemoptysis. Admit shortness of breath. GASTROINTESTINAL: see HPI GENITOURINARY: Denies hematuria, denies infections. MUSKULOSKELETAL: Denies pain, denies swelling. INTEGUMENTARY: Denies rash, denies eczema. NEUROLOGICAL: Denies recent memory loss, no recent seizure activity. PSYCHIATRIC: Denies anxiety, denies depression. HEMATOLOGIC/LYMPHATIC: Denies anemia, denies enlarged lymph node Past Medical History Past Medical History: Sleep Apnea/CPAP/BIPAP Additional Past Medical History / Comment(s): Ulcerative colitis History of Any Multi-Drug Resistant Organisms: None Reported Past Surgical History: No Surgical Hx Reported Additional Past Surgical History / Comment(s): colonoscopy Past Anesthesia/Blood Transfusion Reactions: No Reported Reaction Additional Past Anesthesia/Blood Transfusion Reaction / Comment(s): no blood transfusion Past Psychological History: ADD/ADHD, Anxiety Smoking Status: Never smoker Past Alcohol Use History: None Reported Past Drug Use History: None Reported - Past Family History Father Family Medical History: Diabetes Mellitus, Myocardial Infarction ([place]) Additional Family Medical History / Comment(s): TOMAS WARD OF PANCREATIC CANCER. Medications and Allergies Home Medications Medication Instructions Recorded Confirmed Type Citalopram Hydrobromide [CeleXA] 20 mg PO DAILY 06/16/23 07/23/23 History Dextroamphetamine/Amphetamine 20 mg PO BID 06/16/23 07/23/23 History [Adderall] Semaglutide [Wegovy] 2.4 mg SQ WE 06/16/23 07/23/23 History Dicyclomine [Bentyl] 10 mg PO TID PRN 07/23/23 07/23/23 History Allergies Allergy/AdvReac Type Severity Reaction Status Date / Time Iodinated Contrast Media AdvReac Vomiting Verified 07/23/23 11:58 Physical Exam Vitals: Vital Signs Temp Pulse Pulse Resp BP BP Pulse Ox 07/23/23 21:52 98.4 F 07/23/23 19:44 125 H 20 118/84 94 L 07/23/23 19:30 100.4 F H 07/23/23 19:21 144 H 24 131/79 94 L 07/23/23 18:25 116 H 22 120/77 96 07/23/23 17:02 112 H 18 120/76 97 07/23/23 14:47 109 H 20 110/69 97 07/23/23 12:53 98.3 F 118 H 20 120/82 96 07/23/23 10:00 102 H 18 115/84 96 07/23/23 09:42 97 18 122/83 92 L 07/23/23 08:40 98.1 F 105 H 20 102/66 96 Intake and Output 07/23/23 07/23/23 07/24/23 14:59 22:59 06:59 Other: Weight 104.326 kg GENERAL EXAM: Alert, 38-year-old white male appearing stated age, comfortable in no apparent distress. HEAD: Normocephalic and atraumatic EYES: Normal reaction of pupils, equal size. NOSE: Clear with pink turbinates. THROAT: No erythema or exudates. NECK: No masses, no JVD. CHEST: No chest wall deformity. LUNGS: Equal air entry with bibasilar inspiratory crackles. No wheezes, rhonchi, focal dullness. On 3 L/m nasal cannula. No conversational dyspnea or accessory muscle use.. CVS: S1 and S2 normal with no audible murmur, regular rhythm. No extra heart elpidio nds. Tachycardic around 120 beats per minutes. ABDOMEN: No hepatosplenomegaly, active bowel sounds, no guarding or rigidity. No cullens or young sign present. SPINE: No scoliosis or deformity SKIN: No rashes CENTRAL NERVOUS SYSTEM: No focal deficits, tone is normal in all 4 extremities. EXTREMITIES: There is no peripheral edema, clubbing, or cyanosis. Peripheral pulses are intact. Results - Laboratory Findings CBC and BMP: 07/23/23 09:05 07/23/23 09:05 PT/INR, D-dimer PT 12.3 sec (10.0-12.5) 07/23/23 09:05 INR 1.2 (<1.2) H 07/23/23 09:05 D-Dimer 1.59 mg/L FEU (<0.60) H 07/23/23 09:05 Abnormal lab findings: Abnormal Labs 07/23/23 07/23/23 07/23/23 09:05 09:05 09:05 WBC 17.8 H MCV 79.3 L RDW 16.3 H Neutrophils # 14.5 H INR 1.2 H D-Dimer 1.59 H Sodium 135 L Carbon Dioxide 20 L Glucose 140 H Lipase 1427 H - Diagnostic Findings Chest x-ray: image reviewed CT scan - chest: image reviewed Assessment and Plan Assessment: Uncomplicated acute interstitial edematous pancreatitis, as demonstrated on abdominal CT. Lipase level is elevated. Recurrent enterocolitis, patient has known history of ulcerative colitis. Recent colonoscopy last month demonstrated mild erythema throughout the entire colon were predominantly in the rectum consistent with mild active colitis. Patient has been receiving Entyvio infusion Acute abdominal pain Dyspnea, likely secondary to above, chest CTA did not show any central pulmonary embolism, could not exclude segmental or subsegmental PE. No acute cardiopulmonary process identified. There were low lung volumes and bibasilar atelectasis. Negative for influenza, RSV, COVID-19. Leukocytosis Obesity, with a BMI of 34, patient had been taking a GLP-1 agonist Obstructive sleep apnea, normally maintained on CPAP at bedtime Plan: Patient's medications, labs, chest x-ray reviewed Continue supplemental oxygen May use CPAP at bedtime Encourage incentive spirometer Patient is currently nothing by mouth Receiving fluid resuscitation in the form of normal saline at 200 ML's per hours Pain appears well-managed with current analgesics. Repeat lipase is pending for the morning Patient denies any significant alcohol intake. Denies recent URI. Denies previous episodes of pancreatitis. he was recently started on Entyvio and Wegovy this year. Check triglyceride levels Procalcitonin levels pending GI consultation was requested We will continue to follow, and further recommendations are forthcoming I have personally seen and examined the patient, performed the documentation and the assessment and plan as written. Number of minutes spent on the visit:20 Time with Patient: Greater than 30
[2023-07-24] MEDS: PIPERACILLIN-TAZOBACTAM 3.375 GM in SODIUM CHLORIDE 0.9% 100 ML IVPB SCH ×3 (02:11→17:20)
[2023-07-24 09:52] LABS: Anisocytosis Slight; Basophils % (A) 0 %; Eosinophils # (A) 0.3 k/uL (0-0.7); Eosinophils % (A) 2 %; HGB 12.1 gm/dL (13.0-17.5); Hypochromasia Slight; Lymphocytes # (A) 1.5 k/uL (1.0-4.8); Lymphocytes % (A) 10 %; MCH 25.7 pg (25.0-35.0); MCHC 31.8 g/dL (31.0-37.0); MCV 80.9 fL (80.0-100.0); Mean Platelet Volume 7.1; Monocytes # (A) 0.8 k/uL (0-1.0); Monocytes % (A) 6 %; Neutrophils % (A) 81 %; Platelet Count 332 k/uL (150-450); RDW 16.2 % (11.5-15.5); WBC 14.7 k/uL (3.8-10.6)
[2023-07-24] MEDS: FAMOTIDINE 20 MG/2 ML VIAL IV SCH ×2 (10:04→19:53)
[2023-07-24] MEDS: HEPARIN SODIUM,PORCINE 5,000 UNIT/ML 1 ML VIAL SQ SCH ×2 (10:04→19:53)
[2023-07-24] MEDS: HYDROmorphone 1 MG/ML 1 ML SYRINGE IVP PRN ×2 (11:33→17:20)
--- NOTE | 2023-07-24 11:57 | P.CONS ---
History of Present Illness - Reason for Consult Consult date: 07/24/23 Pancreatitis, ulcerative colitis Requesting physician: Rogelio Lott - Chief Complaint Abdominal pain - History of Present Illness This is a pleasant 38-year-old male with a history of ulcerative colitis diagnosed approximately 2 years ago who follows with Dr. Tejeda who presented to the emergency department yesterday morning with complaints of abdominal pain greatest in the right lower quadrant. Patient states it started 3 days ago and associated with nausea and vomiting. States he also felt that he had chills and body aches. He is on Entyvio for his ulcerative colitis, states he took his last one a few weeks ago and is now going to get it every 7 weeks. He had recent colonoscopy on 06/20/[address] Campos revealing mild erythema throughout the entire colon more predominant in the rectum consistent with mild active colitis. Terminal ileum appeared normal. At that time patient had also been on steroids and was recommended to decreased by 5 mg every 2 weeks. Patient no longer on steroids at this time. He denies any blood per rectum, denies any diarrhea states bowels are normal and bowel movements are soft and formed. As part of his workup he had a CAT scan of the abdomen and pelvis reporting recurrent enterocolitis centered in the right mid to lower abdomen involving distal small bowel loops and cecum. CT findings also consistent with uncomplicated acute interstitial edematous pancreatitis. Patient did have elevated d-dimer on admission and also underwent a chest CTA that reported suboptimal study without central saddle pulmonary embolism. Cannot exclude segmental and subsegmental arteries this exam. Low lung volumes with bilateral lower lung atelectasis. Patient currently states abdominal pain improved. It is mostly in the lower abdomen right greater than left does have some right upper quadrant discomfort as well. Has some nausea but no vomiting. Patient has been on Wygovy for weight loss management, states this is his third time having abdominal pain since he's been on the Wygovi. Questionable prior pancreatitis. He states that this is his first diagnosed episode of pancreatitis. Denies any history of drinking. Admitting Labs WBC 17.8 hemoglobin 14.3 hematocrit 44 platelet count 434,000 INR 1.2 d-dimer 1.59 sodium 135 potassium 4.3 BUNs 14 creatinine 0.96 glucose 140 total bilirubin 1.0 AST 19 ALTs 19 PICC line phosphatase 52 lipase 1427 Review of Systems REVIEW OF SYSTEMS: CARDIOPULMONARY: No chest pain, patient does have some shortness of breath. He does have a history of sleep apnea currently has cpap Gastrointestinal: Abdominal pain lower abdomen right greater than left. Some right upper quadrant pain. Nausea and vomiting. No blood per rectum or bloody bowel movements. GENITOURINARY: No dysuria or hematuria. MUSCULOSKELETAL: Reports normal range of motion. SKIN: No rashes. No jaundice. ENDOCRINE: No chills, fevers. No excessive weight gain or loss. No polydipsia or polyuria. PSYCHIATRIC: Unremarkable. NEUROLOGY: No change in mental status. Denies dizziness, headache. ENT: Vision unremarkable. CONSTITUTIONAL: No recent weight loss. No fever, chills, night sweats. Past Medical History Past Medical History: Sleep Apnea/CPAP/BIPAP Additional Past Medical History / Comment(s): Ulcerative colitis History of Any Multi-Drug Resistant Organisms: None Reported Past Surgical History: No Surgical Hx Reported Additional Past Surgical History / Comment(s): colonoscopy Past Anesthesia/Blood Transfusion Reactions: No Reported Reaction Additional Past Anesthesia/Blood Transfusion Reaction / Comm: no blood transfusion Past Psychological History: ADD/ADHD, Anxiety Smoking Status: Never smoker Past Alcohol Use History: None Reported Past Drug Use History: None Reported - Past Family History Father Family Medical History: Diabetes Mellitus, Myocardial Infarction ([place]) Additional Family Medical History / Comment(s): TOMAS WARD OF PANCREATIC CANCER. Medications and Allergies Home Medications Medication Instructions Recorded Confirmed Type Citalopram Hydrobromide [CeleXA] 20 mg PO DAILY 06/16/23 07/23/23 History Dextroamphetamine/Amphetamine 20 mg PO BID 06/16/23 07/23/23 History [Adderall] Semaglutide [Wegovy] 2.4 mg SQ WE 06/16/23 07/23/23 History Dicyclomine [Bentyl] 10 mg PO TID PRN 07/23/23 07/23/23 History Allergies Allergy/AdvReac Type Severity Reaction Status Date / Time Iodinated Contrast Media AdvReac Vomiting Verified 07/23/23 11:58 Physical Exam Vitals: Vital Signs Temp Pulse Pulse Resp BP BP Pulse Ox 07/24/23 04:00 98.2 F 100 22 106/71 93 L 07/23/23 21:52 98.4 F 07/23/23 19:44 125 H 20 118/84 94 L 07/23/23 19:30 100.4 F H 07/23/23 19:21 144 H 24 131/79 94 L 07/23/23 18:25 116 H 22 120/77 96 07/23/23 17:02 112 H 18 120/76 97 07/23/23 14:47 109 H 20 110/69 97 07/23/23 12:53 98.3 F 118 H 20 120/82 96 07/23/23 10:00 102 H 18 115/84 96 07/23/23 09:42 97 18 122/83 92 L Intake and Output 07/23/23 07/24/23 07/24/23 22:59 06:59 14:59 Output Total 700 Balance -700 Output: Urine 700 Other: Weight 104.9 kg General appearance: The patient is alert, oriented, appears in no acute distress. HET: Head is normocephalic and atraumatic. Conjunctiva pink. Sclera anicteric. Neck: Supple without lymphadenopathy. Trachea midline. Heart: Regular. Lungs: Equal expansion, normal respiratory effort. Abdomen: Soft, diffuse tenderness, greatest in the lower abdomen. Nondistended with bowel sounds. No guarding or rigidity. Skin: No rashes. No jaundice. Extremities: Normal skin color and turgor. No pedal edema. Neurological: No focal deficits. Alert and oriented x3. Results CBC & Chem 7: 07/24/23 08:58 07/23/23 09:05 Labs: Abnormal Lab Results - Last 24 Hours (Table) 07/23/23 07/23/23 07/23/23 Range/Units 09:05 09:05 09:05 WBC 17.8 H (3.8-10.6) k/uL MCV 79.3 L (80.0-100.0) fL RDW 16.3 H (11.5-15.5) % Neutrophils # 14.5 H (1.3-7.7) k/uL INR 1.2 H (<1.2) D-Dimer 1.59 H (<0.60) mg/L FEU Sodium 135 L (137-145) mmol/L Carbon Dioxide 20 L (22-30) mmol/L Glucose 140 H (74-99) mg/dL Lipase 1427 H (23-300) U/L Comments: CT abdomen and pelvis with contrast reporting recurrent enterocolitis centered in the right mid to lower abdomen involving distal small bowel loops and cecum. CT findings also consistent with uncomplicated acute interstitial edematous pancreatitis. Chest CTA that reported suboptimal study without central saddle pulmonary embolism. Cannot exclude segmental and subsegmental arteries this exam. Low lung volumes with bilateral lower lung atelectasis. Assessment and Plan (1) Acute pancreatitis Narrative/Plan: 38-year-old male with a history of ulcerative colitis diagnosed 2 years ago currently on Entyvio presenting to the emergency department with abdominal pain. CAT scan was consistent for recurrent enterocolitis as well as acute pancreatitis. Patient denies previous episodes of pancreatitis however states that he has been having ongoing abdominal pain over the last few months since starting his Wygovy for weight loss. Patient had been having diarrhea and follows with Dr. Campos and underwent recent colonoscopy on 06/20/2023 which at that time had also been on oral steroids. Findings of mild erythema throughout the entire colon up more predominant in the rectum consistent with mild active colitis. Biopsies were positive for mild active inflammation, chronic colitis. Rectum was consistent with chronic proctitis with moderate active inflammation, focal ulceration and focal features suggestive of prolapse change. Patient continues to have lower abdominal pain, bowel movements have been normal, no diarrhea or bloody stools. Did have associated nausea and vomiting, pain may be more consistent with acute pancreatitis. He has been on a new medication for weight loss, likely medication induced pancreatitis. Recommend discontinuing Wygovi. Current Visit: Yes Status: Acute Code(s): K85.90 - ACUTE PANCREATITIS WITHOUT NECROSIS OR INFECTION, UNSP SNOMED Code(s): 173122676 (2) Ulcerative colitis Current Visit: Yes Status: Acute Code(s): K51.90 - ULCERATIVE COLITIS, UNSPECIFIED, WITHOUT COMPLICATIONS SNOMED Code(s): 70024138 Plan: 1. Ice chips then may advance to clear liquid diet for lunch 2. Sed rate and CRP ordered 3. Patient had recent colonoscopy 06/20/2023, no plans on repeat colonoscopy at this time 4. Triglycerides ordered and pending 5. Agree with discontinuing Wygovy 6. Further recommendations forthcoming based on clinical course Thank you for this consultation, we will continue to follow. Dr. Jagruti Campos I agree with the dictator's note, documented as a scribe by Loren Hadley.
--- NOTE | 2023-07-24 12:38 | P.GSCN ---
History of Present Illness Consult date: 07/24/23 History of present illness: CHIEF COMPLAINT: Abdominal pain HISTORY OF PRESENT ILLNESS: This is a 38-year-old male with a history of ulcerative colitis diagnosed in 2020. He is followed by Dr. Campos for his GI specialist. Last colonoscopy was in June 2023 which is consistent with mild active colitis. Patient presents to the hospital with complaints of right lower quadrant abdominal pain and epigastric abdominal pain. Patient reports the lower abdominal pain is similar to his ulcerative colitis flareups. He reports having normal bowel movements. Denies any blood in his stools. Denies any diarrhea. Denies any nausea or vomiting. Reports no prior history of pancreatitis. Does have a grandfather with history of pancreatic cancer. Patient did have a low-grade temp of 100.4. And his been mildly tachycardic. Computed tomography scan abdomen and pelvis reports recurrent enterocolitis centered in the right mid to lower abdomen involving the distal small bowel loops and cecum. Also consistent with uncomplicated acute interstitial edematous pancreatitis. Patient reported being on a new medication called Wygovi for weight loss. GI has evaluated patient and felt that this could be a medication induced pancreatitis and have recommended discontinuing the Wygovi. Patient's lipase was elevated on admission. PAST MEDICAL HISTORY: See list. PAST SURGICAL HISTORY: See list. MEDICATIONS: See list. ALLERGIES: See list. SOCIAL HISTORY: No illicit drug use. REVIEW OF SYSTEMS: CONSTITUTIONAL: Denies fever or chills. HEENT: Denies blurred vision, vision changes, or eye pain. Denies hemoptysis ENDOCRINE: Denies heat or cold intolerance. CARDIOVASCULAR: Denies chest pain or pressure. RESPIRATORY: No shortness of breath. GASTROINTESTINAL: Please refer to HPI NEURO: Denies history of seizures. PSYCH: No depression or suicidal ideation HEMATOLOGIC: Denies bleeding disorders. LYMPHATIC: The patient denies any lumps and bumps around the neck. GENITOURINARY: Denies any blood in urine or increased urinary frequency. MUSCULOSKELETAL: Denies myalgias. Denies joint swelling. Denies decreased range of motion beyond patients baseline. SKIN: Denies pruitis. Denies rash. PHYSICAL EXAM: VITAL SIGNS: Reviewed GENERAL: Well-developed in no acute distress. HEENT: No sclera icterus. Extraocular movements grossly intact. Moist buccal mucosa. Head is atraumatic, normocephalic. Hears conversational speech. No nasal drainage. NECK: Supple without lymphadenopathy. CHEST: Non-labored respirations and equal bilateral excursions. CARDIOVASCULAR: Palpable 2+ radial pulses. ABDOMEN: Soft. Nondistended. Epigastric tenderness and right lower quadrant tenderness MUSCULOSKELETAL: No clubbing or cyanosis. NEUROLOGIC: No focal or lateralizing signs. Cranial nerves II through XII grossly intact. PSYCH: Appropriate affect. Alert and oriented to person, place and time. SKIN: Well perfused. Good skin turgor. LABORATORY DATA: WBC 17.8 down to 14.7 Hgb 12.1 platelets 332 D-dimer 1.59 Sodium 135 potassium is 4.3, creatinine 0.96 Lactic acid 0.8 LFTs normal lipase 1427 Urinalysis negative for infection Influenza, RSV and COVID-19 not detected IMAGING: Computed tomography scan abdomen and pelvis reports there is recurrent enterocolitis centered in the right mid to lower abdomen involving distal small bowel loops and cecum. Differential includes infectious, inflammatory and less likely ischemic etiology. CT findings consistent with uncomplicated acute interstitial edematous pancreatitis also felt present. ASSESSMENT: 1. Acute pancreatitis 2. Enterocolitis in the right mid to lower abdomen involving distal small bowel loops and cecum noted on CT 3. History of ulcerative colitis PLAN: -Check gallbladder ultrasound to rule out gallstones contributing to patient's pancreatitis -Continue GI plan of care -Continue clear liquid diet -Continue to monitor lipase Physician Jewelry Sales Associate note has been reviewed by physician. Signing provider agrees with the documented findings, assessment, and plan of care. Past Medical History Past Medical History: Sleep Apnea/CPAP/BIPAP Additional Past Medical History / Comment(s): Ulcerative colitis History of Any Multi-Drug Resistant Organisms: None Reported Past Surgical History: No Surgical Hx Reported Additional Past Surgical History / Comment(s): colonoscopy Past Anesthesia/Blood Transfusion Reactions: No Reported Reaction Additional Past Anesthesia/Blood Transfusion Reaction / Comm: no blood transfusion Past Psychological History: ADD/ADHD, Anxiety Smoking Status: Never smoker Past Alcohol Use History: None Reported Past Drug Use History: None Reported - Past Family History Father Family Medical History: Diabetes Mellitus, Myocardial Infarction ([place]) Additional Family Medical History / Comment(s): SENTS, GRANDPA OF PANCREATIC CANCER. Medications and Allergies Home Medications Medication Instructions Recorded Confirmed Type Citalopram Hydrobromide [CeleXA] 20 mg PO DAILY 06/16/23 07/23/23 History Dextroamphetamine/Amphetamine 20 mg PO BID 06/16/23 07/23/23 History [Adderall] Semaglutide [Wegovy] 2.4 mg SQ WE 06/16/23 07/23/23 History Dicyclomine [Bentyl] 10 mg PO TID PRN 07/23/23 07/23/23 History Allergies Allergy/AdvReac Type Severity Reaction Status Date / Time Iodinated Contrast Media AdvReac Vomiting Verified 07/23/23 11:58 Surgical - Exam Vital Signs Temp Pulse Resp BP Pulse Ox 98.1 F 105 H 20 102/66 96 07/23/23 08:40 07/23/23 08:40 07/23/23 08:40 07/23/23 08:40 07/23/23 08:40 Results - Labs 07/24/23 08:58 07/23/23 09:05 Abnormal Lab Results - Last 24 Hours (Table) 07/24/23 07/24/23 Range/Units 00:15 08:58 WBC 14.7 H (3.8-10.6) k/uL Hgb 12.1 L (13.0-17.5) gm/dL Hct 38.0 L (39.0-53.0) % RDW 16.2 H (11.5-15.5) % Neutrophils # 12.0 H (1.3-7.7) k/uL Procalcitonin 1.85 H (0.02-0.09) ng/mL
[2023-07-24 13:07] LABS: C Reactive Protein 37.2 mg/dL (<1.0)
--- NOTE | 2023-07-24 13:29 | US ---
EXAMINATION TYPE: US gallbladder DATE OF EXAM: 07/24/2023 COMPARISON: NONE CLINICAL INDICATION: Male, 38 years old with history of abdominal pain; abdominal pain, nausea/vomiti ng TECHNIQUE: Multiple sonographic images of the right upper quadrant are obtained. FINDINGS: EXAM MEASUREMENTS: Liver Length: 17.1 cm Gallbladder Wall: 0.3 cm Right Kidney: 11.5 x 6.0 x 5.5 cm TRAVERTINE INSTALLER NOTES:Technical limitations due to large amount of overlying bowel gas Pancreas: Obscured by bowel gas Liver: only seen intercostally, attenuating, heterogeneous Gallbladder: no evidence of stones as visualized Evidence for sonographic Schwab's sign: no CBD: Obscured by overlying bowel gas Right Kidney: no evidence of hydronephrosis IMPRESSION: Limited exam demonstrates no definite acute process. Heterogeneous pattern of liver can be seen with hepatocellular disease or hepatic steatosis.
--- NOTE | 2023-07-24 14:01 | P.PN ---
Subjective This is a pleasant 37 years old male with past medical history of depression and obesity on wegovy Presents because of abdominal pain over few days duration, this is the fourth time presents with similar presentation where he was diagnosed with acute pancreatitis from the beginning of the summer. These episodes started to happen after he started taking medication wegovy for weight loss, his abdominal pain and tenderness is severe, he associated with vomiting but he does not have diarrhea or bowel movement yet. He had colonic spasm before which his doctor prescribed Bentyl with partial improvement but this time is different. He had no bowel movement since Monday. Denies any urinary symptoms, no chest pain or dyspnea. No headache weakness or numbness or dizziness. Patient denies drinking alcohol. He follows with Dr. Campos as an outpatient He is mildly tachycardic Labs showed leukocytosis of 17.8. CBC is unremarkable. INR is 1.2. D-dimer is elevated 1.5. BMP and liver enzymes were not elevated. Lipase as high 1427. Analysis is negative for infection. CTA of the chest: No signs of pulmonary embolism. Bilateral lower lobe atele ctasis. CT of the abdomen and pelvis: The right mid to lower abdomen involving distal small bowel loops of cecum. Also 5 is consistent with uncomplicated acute interstitial edematous pancreatitis 07/24/2023 Last night patient got more tachypneic tachycardic and he was agitated (as per Lacie patient develops such symptoms when he stopped taking his Celexa which he stopped doing that for the last few days because of his abdominal symptoms) Therefore patient received BiPAP overnight and repeat blood work was ordered showing normal lactic acid 0.8 but elevated towardcalcitonin 1.85. Patient developed low-grade temperature of 100.5. Also he has leukocytosis about 40,000 before patient started on antibiotic empirically for intra-abdominal infection anterior colitis. Gallbladder ultrasound is negative for acute process Patient currently continued with normal saline 200 mL/h Patient this morning was lying in bed comfortable, awake alert, abdominal pain is improving. No significant vomiting. His breathing is quiet and no other new complaints. Review of systems CONSTITUTIONAL: No fever, no malaise, no fatigue. HEENT: No recent visual problems or hearing problems. Denied any sore throat. CARDIOVASCULAR: No orthopnea, PND, no palpitations, no syncope. PULMONARY: No shortness of breath, no cough, no hemoptysis. NEUROLOGICAL: No headaches, no weakness, no numbness. HEMATOLOGICAL: Denies any bleeding or petechiae. GENITOURINARY: Denies any burning micturition, frequency, or urgency. Active Medications Generic Name Dose Route Start Last Admin Trade Name Freq PRN Reason Stop Dose Admin Acetaminophen 1,000 mg 07/23/23 19:31 07/23/23 19:43 Acetaminophen Tab 500 Mg Tab PO 1,000 mg Q6HR PRN Administration Fever and/ or Pain Citalopram Hydrobromide 20 mg 07/24/23 14:00 Citalopram Hydrobromide 20 Mg Tab PO DAILY [facility] Famotidine 20 mg 07/23/23 21:00 07/24/23 10:04 Famotidine 20 Mg/2 Ml Vial IV 20 mg Q12HR [facility] Administration Heparin Sodium (Porcine) 5,000 unit 07/23/23 21:00 07/24/23 10:04 Heparin Sodium,Porcine 5,000 Unit/Ml 1 Ml Vial SQ 5,000 unit Q12HR [facility] Administration Hydromorphone HCl 0.5 mg 07/23/23 11:43 07/23/23 20:03 Hydromorphone 0.5 Mg/0.5 Ml Syringe IVP 0.5 mg Q3HR PRN Administration Moderate Pain (Scale 4 to 6) Hydromorphone HCl 1 mg 07/23/23 11:43 07/24/23 11:33 Hydromorphone 1 Mg/Ml 1 Ml Syringe IVP 1 mg Q3HR PRN Administration Severe Pain (Scale 7 to 10) Sodium Chloride 1,000 mls @ 150 mls/hr 07/23/23 15:00 07/24/23 11:35 Saline 0.9% IV 200 mls/hr .Q6H40M [facility] Administration Piperacillin Sod/Tazobactam 100 mls @ 25 mls/hr 07/24/23 02:00 07/24/23 10:04 Sod 3.375 gm/ Sodium Chloride IVPB 25 mls/hr Q8H [facility] Administration Protocol Naloxone HCl 0.2 mg 07/23/23 11:43 Naloxone 0.4 Mg/Ml 1 Ml Vial IV Q2M PRN Opioid Reversal Objective - Vital Signs Vital signs: Vital Signs Temp 98.2 F 07/24/23 04:00 Pulse 115 H 07/24/23 08:00 Resp 18 07/24/23 08:00 BP 105/65 07/24/23 08:00 Pulse Ox 95 07/24/23 11:41 FiO2 Intake & Output 07/23/23 07/24/23 07/24/23 18:59 06:59 18:59 Intake Total 225 Output Total 700 Balance -700 225 Weight 104.326 kg 104.9 kg Intake: Oral 225 Output: Urine 700 - Exam GENERAL: The patient is alert and oriented x3, not in any acute distress. Well developed, well nourished. HEENT: Pupils are round and equally reacting to light. EOMI. No scleral icterus. No conjunctival pallor. Normocephalic, atraumatic. No pharyngeal erythema. No thyromegaly. CARDIOVASCULAR: S1 and S2 present. No murmurs, rubs, or gallops. PULMONARY: Chest is clear to auscultation, no wheezing , no crackles. -ABDOMEN: Soft, epigastric tenderness, nondistended, normoactive bowel sounds. No palpable organomegaly. MUSCULOSKELETAL: No joint swelling or deformity. EXTREMITIES: No cyanosis, clubbing, or pedal edema. NEUROLOGICAL: Gross neurological examination did not reveal any focal deficits. SKIN: No rashes. no petechiae. - Labs CBC & Chem 7: 07/24/23 08:58 07/23/23 09:05 Labs: Abnormal Lab Results - Last 24 Hours (Table) 07/24/23 07/24/23 07/24/23 Range/Units 00:15 08:58 08:58 WBC 14.7 H (3.8-10.6) k/uL Hgb 12.1 L (13.0-17.5) gm/dL Hct 38.0 L (39.0-53.0) % RDW 16.2 H (11.5-15.5) % Neutrophils # 12.0 H (1.3-7.7) k/uL C-Reactive Protein 37.2 H (<1.0) mg/dL Procalcitonin 1.85 H (0.02-0.09) ng/mL Assessment and Plan Assessment: Recurrent Acute pancreatitis most likely secondary to wegovy Distal small bowel and cecum inflammation most likely secondary to above Sepsis with fever and leukocytosis secondary to pancreatitis and intra-abdominal infection. Patient also had a fever Obesity with BMI 34 History of depression Plan: Continue with IV fluid, increased rectum 200 mL per hour patient is started on Zosyn, follow-up culture results Follow-up blood culture Follow-up triglycerides Pain medication with Dilaudid Bowel rest GI consult Patient advised to avoid wegovy and he agrees to stop taking it Labs and medication were reviewed.. Continue same treatment. Continue with symptomatic treatment. Resume home medication. Monitor labs and vitals. DVT and GI prophylaxis. Further recommendations as per clinical course of the patient DVT prophylaxis: Subcutaneous heparin GI Prophylaxis: Pepcid Prognosis is guarded
[2023-07-24 15:54] LABS: Blood Urea Nitrogen 10.7 mg/dL (9.0-27.0); Calcium 7.9 mg/dL (8.7-10.3); Carbon Dioxide 21.2 mmol/L (21.6-31.8); Chloride 108 mmol/L (96-109); Glucose 85 mg/dL (70-110); Potassium 4.1 mmol/L (3.5-5.5); Sodium 142 mmol/L (135-145)
[2023-07-24 16:08] LABS: Lipase 1323 U/L (14-60)
[2023-07-24] MEDS: ACETAMINOPHEN TAB 500 MG TAB PO PRN (16:30)
[2023-07-24] MEDS: CITALOPRAM HYDROBROMIDE 20 MG TAB PO SCH (17:21)
[2023-07-25] MEDS: HYDROmorphone 1 MG/ML 1 ML SYRINGE IVP PRN ×4 (00:10→17:20)
[2023-07-25] MEDS: PIPERACILLIN-TAZOBACTAM 3.375 GM in SODIUM CHLORIDE 0.9% 100 ML IVPB SCH ×3 (02:21→17:20)
[2023-07-25] MEDS: SODIUM CHLORIDE 0.9% 1,000 ML IV SCH ×4 (02:24→17:21)
[2023-07-25 08:57] LABS: Anisocytosis Slight; HCT 32.9 % (39.0-53.0); HGB 10.3 gm/dL (13.0-17.5); Hypochromasia Slight; MCH 25.5 pg (25.0-35.0); MCHC 31.4 g/dL (31.0-37.0); MCV 81.1 fL (80.0-100.0); Mean Platelet Volume 6.9; Platelet Count 336 k/uL (150-450); RBC 4.05 m/uL (4.30-5.90); RDW 16.1 % (11.5-15.5)
--- NOTE | 2023-07-25 09:30 | P.PN ---
Subjective Progress Note Date: 07/25/23 Principal diagnosis: Pancreatitis This is a pleasant 38-year-old male with a history of ulcerative colitis diagnosed approximately 2 years ago who follows with Dr. Tejeda who presented to the emergency department yesterday morning with complaints of abdominal pain greatest in the right lower quadrant. Patient states it started 3 days ago and associated with nausea and vomiting. States he also felt that he had chills and body aches. He is on Entyvio for his ulcerative colitis, states he took his last one a few weeks ago and is now going to get it every 7 weeks. He had re cent colonoscopy on 06/20/[address] Campos revealing mild erythema throughout the entire colon more predominant in the rectum consistent with mild active colitis. Terminal ileum appeared normal. At that time patient had also been on steroids and was recommended to decreased by 5 mg every 2 weeks. Patient no longer on steroids at this time. He denies any blood per rectum, denies any diarrhea states bowels are normal and bowel movements are soft and formed. As part of his workup he had a CAT scan of the abdomen and pelvis reporting recurrent enterocolitis centered in the right mid to lower abdomen involving distal small bowel loops and cecum. CT findings also consistent with uncomplic ated acute interstitial edematous pancreatitis. Patient did have elevated d- dimer on admission and also underwent a chest CTA that reported suboptimal study without central saddle pulmonary embolism. Cannot exclude segmental and subsegmental arteries this exam. Low lung volumes with bilateral lower lung atelectasis. Patient currently states abdominal pain improved. It is mostly in the lower abdomen right greater than left does have some right upper quadrant discomfort as well. Has some nausea but no vomiting. Patient has been on Wygovy for weight loss management, states this is his third time having abdominal pain since he's been on the Wygovi. Questionable prior pancreatitis. He states that this is his first diagnosed episode of pancreatitis. Denies any history of drinking. 07/25/2023 Patient is seen and examined today as a follow-up. States pain is improved some. He did have a bowel movement last night which he said was painful with lower abdominal cramping, it was loose but nonbloody. No nausea or vomiting. He is tolerating clear liquid diet. WBC L 11.0, hemoglobin 10.3 platelet count 336,000 ipase is trending down slowly, today's lipase 1389. CRP was elevated at 37.2 and triglycerides 166. Patient was afebrile through the night. Currently wearing CPAP. Objective - Vital Signs Vital signs: Vital Signs Temp 98.1 F 07/25/23 03:57 Pulse 80 07/25/23 03:57 Resp 17 07/25/23 03:57 BP 107/68 07/25/23 03:57 Pulse Ox 97 07/25/23 03:57 FiO2 Intake & Output 07/24/23 07/25/23 07/25/23 18:59 06:59 18:59 Intake Total 325 Balance 325 Intake: Intake, IV Titration 100 Amount Piperacillin-Tazobactam 3 100 .375 gm In Sodium Chloride 0.9% 100 ml @ 25 mls/hr IVPB Q8H [facility] Rx#: [id number] Oral 225 Other: Voiding Method Toilet # Voids 1 - Exam General appearance: The patient is alert, oriented, appears in no acute distress. HET: Head is normocephalic and atraumatic. Conjunctiva pink. Sclera anicteric. Neck: Supple without lymphadenopathy. Abdomen: Soft, right upper quadrant and lower quadrant tenderness to palpation, nondistended. No guarding or rigidity. Extremities: Normal skin color and turgor. No pedal edema Skin: No rashes, no jaundice Neurological: No focal deficits. Alert and oriented. - Labs CBC & Chem 7: 07/25/23 08:43 07/24/23 08:58 Labs: Abnormal Lab Results - Last 24 Hours (Table) 07/24/23 07/24/23 07/24/23 Range/Units 00:15 08:58 08:58 WBC 14.7 H (3.8-10.6) k/uL RBC (4.30-5.90) m/uL Hgb 12.1 L (13.0-17.5) gm/dL Hct 38.0 L (39.0-53.0) % RDW 16.2 H (11.5-15.5) % Neutrophils # 12.0 H (1.3-7.7) k/uL Carbon Dioxide 21.2 L (21.6-31.8) mmol/L Anion Gap 12.80 H (4.00-12.00) mmol/L BUN/Creatinine Ratio 10.70 L (12.00-20.00) Ratio Calcium 7.9 L (8.7-10.3) mg/dL C-Reactive Protein 37.2 H (<1.0) mg/dL Triglycerides 166.00 H (0.00-149.00) mg/dL Lipase 1323 H (14-60) U/L Procalcitonin 1.85 H (0.02-0.09) ng/mL 07/25/23 07/25/23 Range/Units 08:43 08:43 WBC 11.0 H (3.8-10.6) k/uL RBC 4.05 L (4.30-5.90) m/uL Hgb 10.3 L (13.0-17.5) gm/dL Hct 32.9 L (39.0-53.0) % RDW 16.1 H (11.5-15.5) % Neutrophils # (1.3-7.7) k/uL Carbon Dioxide (21.6-31.8) mmol/L Anion Gap (4.00-12.00) mmol/L BUN/Creatinine Ratio (12.00-20.00) Ratio Calcium (8.7-10.3) mg/dL C-Reactive Protein (<1.0) mg/dL Triglycerides (0.00-149.00) mg/dL Lipase 1389 H (14-60) U/L Procalcitonin (0.02-0.09) ng/mL Assessment and Plan (1) Acute pancreatitis Narrative/Plan: 38-year-old male with a history of ulcerative colitis diagnosed 2 years ago currently on Entyvio presenting to the emergency department with abdominal pain. CAT scan was consistent for recurrent enterocolitis as well as acute pancreatitis. Patient denies previous episodes of pancreatitis however states that he has been having ongoing abdominal pain over the last few months since starting his Wygovy for weight loss. Patient had been having diarrhea and f ollows with Dr. Campos and underwent recent colonoscopy on 06/20/2023 which at that time had also been on oral steroids. Findings of mild erythema throughout the entire colon up more predominant in the rectum consistent with mild active colitis. Biopsies were positive for mild active inflammation, chronic colitis. Rectum was consistent with chronic proctitis with moderate active inflammation, focal ulceration and focal features suggestive of prolapse change. Patient continues to have lower abdominal pain, bowel movements have been normal, no diarrhea or bloody stools. Did have associated nausea and vomiting, pain may be more consistent with acute pancreatitis. He has been on a new medication for weight loss, likely medication induced pancreatitis. Recommend discontinuing Wygovi. Current Visit: Yes Status: Acute Code(s): K85.90 - ACUTE PANCREATITIS WITHOUT NECROSIS OR INFECTION, UNSP SNOMED Code(s): 973751847 (2) Ulcerative colitis Narrative/Plan: 38-year-old male with a history of ulcerative colitis diagnosed 2 years ago currently on Entyvio presenting to the emergency department with abdominal pain. CAT scan was consistent for recurrent enterocolitis as well as acute pancreatitis. Patient denies previous episodes of pancreatitis however states that he has been having ongoing abdominal pain over the last few months since starting his Wygovy for weight loss. Patient had been having diarrhea and follows with Dr. Tejeda underwent recent colonoscopy on 06/20/2023 which at that time had also been on oral steroids. Findings of mild erythema throughout the entire colon up more predominant in the rectum consistent with mild active colitis. Biopsies were positive for mild active inflammation, chronic colitis. Rectum was consistent with chronic proctitis with moderate active inflammation, focal ulceration and focal features suggestive of prolapse change. Patient continues to have lower abdominal pain, bowel movements have been normal, no diarrhea or bloody stools. Did have associated nausea and vomiting, pain may be more consistent with acute pancreatitis. He has been on a new medication for weight loss, likely medication induced pancreatitis. Recommend discontinuing Wygovi. Current Visit: Yes Status: Acute Code(s): K51.90 - ULCERATIVE COLITIS, UNSPECIFIED, WITHOUT COMPLICATIONS SNOMED Code(s): 61379458 Plan: 1. Continue clear liquid diet for today 2. Continue antibiotics for now 3. Patient had recent colonoscopy 06/20/2023, no plans on repeat colonoscopy at this time 4. Encourage ambulation 5. Agree with discontinuing Wygovy 6. Continue IV hydration and pain medications. Anticipate discharge in the next 24-48 hours Thank you for this consultation, we will continue to follow. Dr. aJgruti Campos I agree with the dictator's note, documented as a scribe by Loren Hadley.
[2023-07-25] MEDS: CITALOPRAM HYDROBROMIDE 20 MG TAB PO SCH (10:26)
[2023-07-25] MEDS: HEPARIN SODIUM,PORCINE 5,000 UNIT/ML 1 ML VIAL SQ SCH ×2 (10:26→20:38)
[2023-07-25] MEDS: FAMOTIDINE 20 MG/2 ML VIAL IV SCH ×2 (10:26→20:38)
[2023-07-25] MEDS ORDERED: ASPIRIN-ACET-CAFF 250-250-65MG 1 EACH TAB PO PRN (10:32)
--- NOTE | 2023-07-25 12:27 | P.PN ---
Subjective Progress Note Date: 07/25/23 Principal diagnosis: Abdominal pain. I am seeing this patient in consultation today 07/24/2023 in the emergency room after the patient presented with acute abdominal pain. Patient is a 38-year-old white male with past medical history significant for ulcerative colitis, obesity, obstructive sleep apnea with home CPAP device, and ADHD. Patient does have history of ulcerative colitis in which he follows with Dr. Campos, and receives Entyvio injections q 8 weeks. Patient is also taking semaglutide for weight loss. Patient presented to the emergency room yesterday morning compl aining of progressively worsening right lower quadrant abdominal pain over the last couple days. Bowel movements have been fairly normal for him, however, has not had a bowel movement in a couple days. Denies any nausea or vomiting, or bleeding. Denies significant alcohol intake. He was also having fevers, tachycardic, and short of breath while at home. Denies any history of asthma or COPD. Denies cough or hemoptysis. He states that he is to children were sick with an upper respiratory infection earlier this week. Abdominal CT on arrival was consistent with uncomplicated acute interstitial edematous pancreatitis, and there was also recurrent enterocolitis centered in the right mid to lower abdomen involving the distal small bowel loops and cecum. Since the patient was also experiencing some shortness of breath and mild chest discomfort, a chest CTA was ordered which did not demonstrate any central saddle pulmonary embolism. Cannot exclude segmental or subsegmental PE. There were low lung volumes and bilateral lower lung atelectasis. Patient is currently lying in bed, on 3 L/m nasal cannula, reporting some improvement in his abdominal pain. He has not been taking deep breaths due to his abdominal pain. Pain is currently being controlled with when necessary Dilaudid. He is diaphoretic. He is tachycardic and tachypneic. Blood pressure is normotensive. On arrival, he did have fever with a T-max of 100.4F. CBC on arrival showed some leukocytosis with a WBC count of17.8, hemoglobin 14.3, hematocrit 44.6, platelets 434. CMP on arrival showed a sodium 135, potassium 4.3, chloride 100, serum bicarbonate 20, BUN 14, creatinine 0.96, glucose 140. LFTs were not elevated. Troponins less than 0.012. NT proBNP was low. Lipase is elevated at 1427 consistent with his diagnosis of acute pancreatitis.patient is being fluid resuscitated and has received a 2.5 L normal saline bolus along with normal saline which is infusing at 200 ML's per hour. Negative for influenza, RSV, COVID-19. Patient is going to be admitted to the cardiac stepdown unit. Progress note dated 07/25/2023. This is a 38-year-old male who was admitted with abdominal discomfort, and acute pancreatitis, thought to be related to his weight loss medication. The patient's currently on room air, saturations are 97%. The patient is receiving saline at 150 mL an hour. Today he sitting up in the chair, next is bed. Apparently, he's been having significant headache, and ongoing abdominal discomfort. He denies any shortness of breath. The computed tomography scan of the abdomen revealed interstitial edematous pancreatitis, likely secondary to the medication he was taking for weight loss. Labs today include a white count of 11, hemoglobin 10.3, hematocrit 32.9, and a normal platelet count. His lipase was 1389. Yesterday was 1323. Pro-calcitonin level was 1.85. Currently, the patient remains on Zosyn empirically. Gallbladder ultrasound was nonspecific. Objective - Vital Signs Vital signs: Vital Signs Temp 98.4 F 07/25/23 08:00 Pulse 101 H 07/25/23 08:00 Resp 18 07/25/23 08:00 BP 114/73 07/25/23 08:00 Pulse Ox 93 L 07/25/23 08:00 FiO2 Intake & Output 07/24/23 07/25/23 07/25/23 18:59 06:59 18:59 Intake Total 325 525 Balance 325 525 Intake: Intake, IV Titration 100 300 Amount Piperacillin-Tazobactam 3 100 .375 gm In Sodium Chloride 0.9% 100 ml @ 25 mls/hr IVPB Q8H [facility] Rx#: [id number] Sodium Chloride 0.9% 1, 300 000 ml @ 150 mls/hr IV . Q6H40M [facility] Rx#:[id number] Oral 225 225 Other: Voiding Method Toilet Toilet # Voids 1 - Exam No acute distress, oriented 3. Currently on room air. HEENT examination is grossly unremarkable. Mucous membranes are moist. No oral lesions. Neck supple. Full range of motion. No adenopathy thyromegaly or neck vein distention. Cardiovascular examination reveals regular rhythm rate. S1-S2 normal. No S3 or S4. No discernible murmur noted. Heart rate 100 bpm. Lungs reveal clear breath sounds. Breath sounds are equal bilaterally. No adventitious lung sounds including wheezes rhonchi or crackles. Room air saturation is 97%. Abdomen mildly distended and tender. No masses. Extremities are intact. No cyanosis clubbing or edema. Skin is without rash or lesion. Neurologic examination is brief but nonfocal. - Labs CBC & Chem 7: 07/25/23 08:43 07/24/23 08:58 Labs: Abnormal Lab Results - Last 24 Hours (Table) 07/24/23 07/25/23 07/25/23 Range/Units 08:58 08:43 08:43 WBC 11.0 H (3.8-10.6) k/uL RBC 4.05 L (4.30-5.90) m/uL Hgb 10.3 L (13.0-17.5) gm/dL Hct 32.9 L (39.0-53.0) % RDW 16.1 H (11.5-15.5) % Carbon Dioxide 21.2 L (21.6-31.8) mmol/L Anion Gap 12.80 H (4.00-12.00) mmol/L BUN/Creatinine Ratio 10.70 L (12.00-20.00) Ratio Calcium 7.9 L (8.7-10.3) mg/dL C-Reactive Protein 37.2 H (<1.0) mg/dL Triglycerides 166.00 H (0.00-149.00) mg/dL Lipase 1323 H 1389 H (14-60) U/L Assessment and Plan Assessment: Acute interstitial edematous pancreatitis, likely secondary to the patient's GLP-1 receptor agonist. History of recurrent enterocolitis. Acute abdominal pain, secondary to pancreatitis. Shortness of breath, likely secondary to intra-abdominal process. Obesity. Sleep apnea syndrome, maintained on CPAP. Plan: Plan dated 07/25/2023. The patient is seen today in room 353. He sitting in a chair next to his bed. He is on room air. He is having a headache, and ongoing abdominal discomfort. No additional recommendations are made. We do recommend the use of the incentive spirometer. He is receiving fluids at 150 mL an hour. Labs, x-rays, and medications are reviewed. Prognosis is thought to be generally good. We will continue to follow. Time with Patient: Less than 30
[2023-07-25] MEDS: PANTOPRAZOLE 40 MG/10 ML VIAL IVP SCH ×2 (13:28→20:37)
--- NOTE | 2023-07-25 14:31 | P.PN ---
Subjective Progress Note Date: 07/25/23 CHIEF COMPLAINT: Abdominal pain HISTORY OF PRESENT ILLNESS: Patient reporting improvement in his abdominal pain. The epigastric pain has resolved. His right lower quadrant abdominal pain is decreasing. He reports having a bowel movement. Denies any blood in his stool. The stool was loose in consistency. Denies any nausea or vomiting. Afebrile. WBC is down from 14.7-11 lipase about the same at 1389. Gallbladder ultrasound limited exam demonstrates no definite acute process. Heterogenous pattern of the liver can be seen with hepatocellular disease or hepatic steatosis. No evidence of stones are visualized. PHYSICAL EXAM: VITAL SIGNS: Reviewed GENERAL: Well-developed in no acute distress. HEENT: No sclera icterus. Extraocular movements grossly intact. Moist buccal mucosa. Head is atraumatic, normocephalic. Hears conversational speech. No nasal drainage. NECK: Supple without lymphadenopathy. CHEST: Non-labored respirations and equal bilateral excursions. CARDIOVASCULAR: Palpable 2+ radial pulses. ABDOMEN: Soft. Nondistended. Tender with palpation of the right lower abdomen MUSCULOSKELETAL: No clubbing or cyanosis. NEUROLOGIC: No focal or lateralizing signs. Cranial nerves II through XII grossly intact. PSYCH: Appropriate affect. Alert and oriented to person, place and time. SKIN: Well perfused. Good skin turgor. ASSESSMENT: 1. Acute pancreatitis likely medication induced. No evidence of gallstones on ultrasound. 2. Enterocolitis in the right mid to lower abdomen involving distal small bowel loops and cecum noted on CT 3. History of ulcerative colitis PLAN: -No surgical intervention planned -Surgical service will sign off. Please call with any questions or concerns. -Management per GI service -Diet advancement per GI service Physician [employer] note has been reviewed by physician. Signing provider agrees with the documented findings, assessment, and plan of care. Objective - Vital Signs Vital signs: Vital Signs Temp 98.4 F 07/25/23 08:00 Pulse 101 H 07/25/23 08:00 Resp 18 07/25/23 08:00 BP 114/73 07/25/23 08:00 Pulse Ox 93 L 07/25/23 08:00 FiO2 Intake & Output 07/24/23 07/25/23 07/25/23 18:59 06:59 18:59 Intake Total 325 525 Balance 325 525 Intake: Intake, IV Titration 100 300 Amount Piperacillin-Tazobactam 3 100 .375 gm In Sodium Chloride 0.9% 100 ml @ 25 mls/hr IVPB Q8H [facility] Rx#: [id number] Sodium Chloride 0.9% 1, 300 000 ml @ 150 mls/hr IV . Q6H40M [facility] Rx#:[id number] Oral 225 225 Other: Voiding Method Toilet Toilet # Voids 1 - Labs CBC & Chem 7: 07/25/23 08:43 07/24/23 08:58 Labs: Abnormal Lab Results - Last 24 Hours (Table) 07/24/23 07/25/23 07/25/23 Range/Units 08:58 08:43 08:43 WBC 11.0 H (3.8-10.6) k/uL RBC 4.05 L (4.30-5.90) m/uL Hgb 10.3 L (13.0-17.5) gm/dL Hct 32.9 L (39.0-53.0) % RDW 16.1 H (11.5-15.5) % Carbon Dioxide 21.2 L (21.6-31.8) mmol/L Anion Gap 12.80 H (4.00-12.00) mmol/L BUN/Creatinine Ratio 10.70 L (12.00-20.00) Ratio Calcium 7.9 L (8.7-10.3) mg/dL C-Reactive Protein 37.2 H (<1.0) mg/dL Triglycerides 166.00 H (0.00-149.00) mg/dL Lipase 1323 H 1389 H (14-60) U/L
--- NOTE | 2023-07-25 16:00 | P.PN ---
Subjective Progress Note Date: 07/25/23 Patient evaluated today resting in bed. Reports abdominal pain is controlled his lipase remains elevated and 1300s does not feel he is hungry he continues on a liquid diet with plans to possibly upgrade to a full liquid diet tomorrow. Maintenance IV hydration at 150 ML per hour with normal saline and remains on IV Zosyn empirically. GI services would like the antibiotics may continue for now. General surgery has signed off at this time no surgical intervention was recommended. White count has improved on 11.0. Review of Systems Constitutional: Denied any fatigue denied any fever. Cardio vascular: denied any chest pain, palpitations Gastrointestinal: Reports abdominal pain/crampy and discomfort had loose BM non bloody. Pulmonary: Denied any shortness of breath cough Neurologic denied any new focal deficits All inpatient medications were reviewed and appropriate changes in these medications as dictated in the interval history and assessment and plan. PHYSICAL EXAMINATION: GENERAL: The patient is alert and oriented x3, not in any acute distress. Well developed, well nourished. HEENT: Pupils are round and equally reacting to light. EOMI. No scleral icterus. No conjunctival pallor. Normocephalic, atraumatic. No pharyngeal erythema. No thyromegaly. CARDIOVASCULAR: S1 and S2 present. No murmurs, rubs, or gallops. PULMONARY: Chest is clear to auscultation, no wheezing or crackles. ABDOMEN: Soft, tender, nondistended, normoactive bowel sounds. No palpable organomegaly. MUSCULOSKELETAL: No joint swelling or deformity. EXTREMITIES: No cyanosis, clubbing, or pedal edema. NEUROLOGICAL: Gross neurological examination did not reveal any focal deficits. SKIN: No rashes. Assessment Recurrent Acute pancreatitis most likely secondary to wegovy Distal small bowel and cecum inflammation most likely secondary to above Sepsis with fever and leukocytosis secondary to pancreatitis and intra-abdominal infection. Patient also had a fever Obesity with BMI 34 History of depression GI prophylaxis on Protonix DVT prophylaxis Subcu heparin Full Code Plan Continue IV fluids normal saline at 150mls/hr Continues on clear liquid diet if tolerated plans to upgrade to full liquid t omorrow Pain management in place GI following Continue empiric antibiotics for now Patient advised to avoid wegovy and he agrees to stop taking it F.U labs in AM The impression and plan of care has been dictated by Meche Lozada, Nurse Practitioner as directed. Dr. Arpan MD I have performed a history and physical examination and medical decision making of this patient, discussed the same with the dictator, and agree with the dictators assessment and plan as written, documented as a scribe. Based on total visit time, I have performed more than 50% of this visit. Objective - Vital Signs Vital signs: Vital Signs Temp 98.1 F 07/25/23 03:57 Pulse 80 07/25/23 03:57 Resp 17 07/25/23 03:57 BP 107/68 07/25/23 03:57 Pulse Ox 97 07/25/23 03:57 FiO2 Intake & Output 07/24/23 07/25/23 07/25/23 18:59 06:59 18:59 Intake Total 325 Balance 325 Intake: Intake, IV Titration 100 Amount Piperacillin-Tazobactam 3 100 .375 gm In Sodium Chloride 0.9% 100 ml @ 25 mls/hr IVPB Q8H [facility] Rx#: [id number] Oral 225 Other: Voiding Method Toilet # Voids 1 - Labs CBC & Chem 7: 07/25/23 08:43 07/24/23 08:58 Labs: Abnormal Lab Results - Last 24 Hours (Table) 07/24/23 07/25/23 07/25/23 Range/Units 08:58 08:43 08:43 WBC 11.0 H (3.8-10.6) k/uL RBC 4.05 L (4.30-5.90) m/uL Hgb 10.3 L (13.0-17.5) gm/dL Hct 32.9 L (39.0-53.0) % RDW 16.1 H (11.5-15.5) % Carbon Dioxide 21.2 L (21.6-31.8) mmol/L Anion Gap 12.80 H (4.00-12.00) mmol/L BUN/Creatinine Ratio 10.70 L (12.00-20.00) Ratio Calcium 7.9 L (8.7-10.3) mg/dL C-Reactive Protein 37.2 H (<1.0) mg/dL Triglycerides 166.00 H (0.00-149.00) mg/dL Lipase 1323 H 1389 H (14-60) U/L Assessment and Plan Time with Patient: Less than 30
[2023-07-25] MEDS: ACETAMINOPHEN TAB 500 MG TAB PO PRN (20:37)
[2023-07-26] MEDS: PIPERACILLIN-TAZOBACTAM 3.375 GM in SODIUM CHLORIDE 0.9% 100 ML IVPB SCH ×2 (01:29→08:24)
[2023-07-26] MEDS: HYDROmorphone 1 MG/ML 1 ML SYRINGE IVP PRN ×3 (04:29→11:26)
[2023-07-26] MEDS: SODIUM CHLORIDE 0.9% 1,000 ML IV SCH ×3 (07:36→12:57)
[2023-07-26] MEDS: HEPARIN SODIUM,PORCINE 5,000 UNIT/ML 1 ML VIAL SQ SCH (08:23)
[2023-07-26] MEDS: PANTOPRAZOLE 40 MG/10 ML VIAL IVP SCH (08:23)
[2023-07-26] MEDS: FAMOTIDINE 20 MG/2 ML VIAL IV SCH (08:24)
[2023-07-26] MEDS: CITALOPRAM HYDROBROMIDE 20 MG TAB PO SCH (08:24)
[2023-07-26] MEDS ORDERED: NON FORMULARY DRUG (Dextroamphetamine/Amphetamine [Adderall] 20 MG Tablet) PO SCH (11:15)
[2023-07-26 11:25] VITALS: BP 132/76; PULSE 95; RESP 18; TEMP 98.3
[2023-07-26] MEDS ORDERED: SIMETHICONE 40 MG/0.6 ML DROPS 2,000 MG/30 ML BOTTLE PO SCH (13:00)
--- NOTE | 2023-07-26 13:02 | XR ---
EXAMINATION TYPE: XR chest 1V portable DATE OF EXAM: 07/26/2023 COMPARISON: 07/23/2023 HISTORY: Cough TECHNIQUE: Single frontal view of the chest is obtained. FINDINGS: Bilateral lower lobe consolidation and small effusion. Limited inspiration. No pneumothora x. Heart size normal. IMPRESSION: Bilateral lower lobe infiltrates greater on the left with small left pleural effusion. C orrelate for pneumonia.
--- NOTE | 2023-07-26 13:38 | P.PN ---
Subjective Progress Note Date: 07/26/23 Principal diagnosis: Abdominal pain. I am seeing this patient in consultation today 07/24/2023 in the emergency room after the patient presented with acute abdominal pain. Patient is a 38-year-old white male with past medical history significant for ulcerative colitis, obesity, obstructive sleep apnea with home CPAP device, and ADHD. Patient does have history of ulcerative colitis in which he follows with Dr. Campos, and receives Entyvio injections q 8 weeks. Patient is also taking semaglutide for weight loss. Patient presented to the emergency room yesterday morning compl aining of progressively worsening right lower quadrant abdominal pain over the last couple days. Bowel movements have been fairly normal for him, however, has not had a bowel movement in a couple days. Denies any nausea or vomiting, or bleeding. Denies significant alcohol intake. He was also having fevers, tachycardic, and short of breath while at home. Denies any history of asthma or COPD. Denies cough or hemoptysis. He states that he is to children were sick with an upper respiratory infection earlier this week. Abdominal CT on arrival was consistent with uncomplicated acute interstitial edematous pancreatitis, and there was also recurrent enterocolitis centered in the right mid to lower abdomen involving the distal small bowel loops and cecum. Since the patient was also experiencing some shortness of breath and mild chest discomfort, a chest CTA was ordered which did not demonstrate any central saddle pulmonary embolism. Cannot exclude segmental or subsegmental PE. There were low lung volumes and bilateral lower lung atelectasis. Patient is currently lying in bed, on 3 L/m nasal cannula, reporting some improvement in his abdominal pain. He has not been taking deep breaths due to his abdominal pain. Pain is currently being controlled with when necessary Dilaudid. He is diaphoretic. He is tachycardic and tachypneic. Blood pressure is normotensive. On arrival, he did have fever with a T-max of 100.4F. CBC on arrival showed some leukocytosis with a WBC count of17.8, hemoglobin 14.3, hematocrit 44.6, platelets 434. CMP on arrival showed a sodium 135, potassium 4.3, chloride 100, serum bicarbonate 20, BUN 14, creatinine 0.96, glucose 140. LFTs were not elevated. Troponins less than 0.012. NT proBNP was low. Lipase is elevated at 1427 consistent with his diagnosis of acute pancreatitis.patient is being fluid resuscitated and has received a 2.5 L normal saline bolus along with normal saline which is infusing at 200 ML's per hour. Negative for influenza, RSV, COVID-19. Patient is going to be admitted to the cardiac stepdown unit. Progress note dated 07/25/2023. This is a 38-year-old male who was admitted with abdominal discomfort, and acute pancreatitis, thought to be related to his weight loss medication. The patient's currently on room air, saturations are 97%. The patient is receiving saline at 150 mL an hour. Today he sitting up in the chair, next is bed. Apparently, he's been having significant headache, and ongoing abdominal discomfort. He denies any shortness of breath. The computed tomography scan of the abdomen revealed interstitial edematous pancreatitis, likely secondary to the medication he was taking for weight loss. Labs today include a white count of 11, hemoglobin 10.3, hematocrit 32.9, and a normal platelet count. His lipase was 1389. Yesterday was 1323. Pro-calcitonin level was 1.85. Currently, the patient remains on Zosyn empirically. Gallbladder ultrasound was nonspecific. Progress note dated 07/26/2023. 38-year-old male who was seen in consultation for abdominal pain, and acute pancreatitis. Clinically, the patient's doing much better. The patient's on room air. He is currently getting Zosyn. Saline is running at 150 mL an hour. A chest x-ray done today shows some infiltrate or atelectasis at the bases. All in all, his chest x-ray does not look bad in my opinion, and he is having minimal pulmonary complaints. The patient could be considered for discharge, on an oral antibiotic. No new labs today other than a lipase of 660, down from 1389. Objective - Vital Signs Vital signs: Vital Signs Temp 98.3 F 07/26/23 11:17 Pulse 95 07/26/23 11:17 Resp 18 07/26/23 11:40 BP 132/76 07/26/23 11:17 Pulse Ox 93 L 07/26/23 11:17 FiO2 Intake & Output 07/25/23 07/26/23 07/26/23 18:59 06:59 18:59 Intake Total 1600 720 Balance 1600 720 Intake: Intake, IV Titration 1150 Amount Piperacillin-Tazobactam 3 100 .375 gm In Sodium Chloride 0.9% 100 ml @ 25 mls/hr IVPB Q8H [facility] Rx#: [id number] Sodium Chloride 0.9% 1, 1050 000 ml @ 150 mls/hr IV . Q6H40M [facility] Rx#:[id number] Oral 450 720 Other: Voiding Method Toilet Toilet # Voids 2 - Exam No acute distress, oriented 3. Currently on room air. Room air saturation is 94%. HEENT examination is grossly unremarkable. Mucous membranes are moist. No oral lesions. Neck supple. Full range of motion. No adenopathy thyromegaly or neck vein distention. Cardiovascular examination reveals regular rhythm rate. S1-S2 normal. No S3 or S4. No discernible murmur noted. Heart rate 95 bpm. Lungs reveal clear breath sounds. Breath sounds are equal bilaterally. No adventitious lung sounds including wheezes rhonchi or crackles. Room air saturation is 94 %. Abdomen mildly distended and tender. No masses. Extremities are intact. No cyanosis clubbing or edema. Skin is without rash or lesion. Neurologic examination is brief but nonfocal. - Labs CBC & Chem 7: 07/25/23 08:43 07/24/23 08:58 Labs: Abnormal Lab Results - Last 24 Hours (Table) 07/26/23 Range/Units 07:25 Lipase 660 H (23-300) U/L Microbiology - Last 24 Hours (Table) 07/24/23 00:23 Blood Culture - Preliminary Blood Assessment and Plan Assessment: Acute interstitial edematous pancreatitis, likely secondary to the patient's GLP-1 receptor agonist. History of recurrent enterocolitis. Acute abdominal pain, secondary to pancreatitis. Shortness of breath, likely secondary to intra-abdominal process. Obesity. Sleep apnea syndrome, maintained on CPAP. Plan: Plan dated 07/25/2023. The patient is seen today in room 353. He sitting in a chair next to his bed. He is on room air. He is having a headache, and ongoing abdominal discomfort. No additional recommendations are made. We do recommend the use of the incentive spirometer. He is receiving fluids at 150 mL an hour. Labs, x-rays, and medications are reviewed. Prognosis is thought to be generally good. We will continue to follow. Plan dated 07/26/2023. The patient appears to be doing much better. A repeat chest x-ray shows either some infiltrate or atelectasis at the bases. He's not really having much or any pulmonary issues. The patient's currently on room air. The patient could be considered for discharge home, on an oral antibiotic. I would be happy to see him in the office after his discharge. No additional recommendations are made. We do recommend continued use of the incentive spirometer. Time with Patient: Less than 30
--- NOTE | 2023-07-26 14:44 | P.PN ---
Subjective Progress Note Date: 07/26/23 Principal diagnosis: Pancreatitis This is a pleasant 38-year-old male with a history of ulcerative colitis diagnosed approximately 2 years ago who follows with Dr. Tejeda who presented to the emergency department yesterday morning with complaints of abdominal pain greatest in the right lower quadrant. Patient states it started 3 days ago and associated with nausea and vomiting. States he also felt that he had chills and body aches. He is on Entyvio for his ulcerative colitis, states he took his last one a few weeks ago and is now going to get it every 7 weeks. He had re cent colonoscopy on 06/20/[address] Campos revealing mild erythema throughout the entire colon more predominant in the rectum consistent with mild active colitis. Terminal ileum appeared normal. At that time patient had also been on steroids and was recommended to decreased by 5 mg every 2 weeks. Patient no longer on steroids at this time. He denies any blood per rectum, denies any diarrhea states bowels are normal and bowel movements are soft and formed. As part of his workup he had a CAT scan of the abdomen and pelvis reporting recurrent enterocolitis centered in the right mid to lower abdomen involving distal small bowel loops and cecum. CT findings also consistent with uncomplic ated acute interstitial edematous pancreatitis. Patient did have elevated d- dimer on admission and also underwent a chest CTA that reported suboptimal study without central saddle pulmonary embolism. Cannot exclude segmental and subsegmental arteries this exam. Low lung volumes with bilateral lower lung atelectasis. Patient currently states abdominal pain improved. It is mostly in the lower abdomen right greater than left does have some right upper quadrant discomfort as well. Has some nausea but no vomiting. Patient has been on Wygovy for weight loss management, states this is his third time having abdominal pain since he's been on the Wygovi. Questionable prior pancreatitis. He states that this is his first diagnosed episode of pancreatitis. Denies any history of drinking. 07/25/2023 Patient is seen and examined today as a follow-up. States pain is improved some. He did have a bowel movement last night which he said was painful with lower abdominal cramping, it was loose but nonbloody. No nausea or vomiting. He is tolerating clear liquid diet. WBC L 11.0, hemoglobin 10.3 platelet count 336,000 ipase is trending down slowly, today's lipase 1389. CRP was elevated at 37.2 and triglycerides 166. Patient was afebrile through the night. Currently wearing CPAP. 07/26/2023 Patient seen and examined today as a follow-up. States abdominal pain is improving. No further bowel movements. No nausea or vomiting. He is afebrile. Lipase improving at 660. He is tolerating clear liquid diet. Objective - Vital Signs Vital signs: Vital Signs Temp 98.1 F 07/26/23 04:00 Pulse 92 07/26/23 08:00 Resp 16 07/26/23 08:00 BP 119/73 07/26/23 08:00 Pulse Ox 91 L 07/26/23 08:00 FiO2 Intake & Output 07/25/23 07/26/23 07/26/23 18:59 06:59 18:59 Intake Total 1600 Balance 1600 Intake: Intake, IV Titration 1150 Amount Piperacillin-Tazobactam 3 100 .375 gm In Sodium Chloride 0.9% 100 ml @ 25 mls/hr IVPB Q8H [facility] Rx#: [id number] Sodium Chloride 0.9% 1, 1050 000 ml @ 150 mls/hr IV . Q6H40M [facility] Rx#:[id number] Oral 450 Other: Voiding Method Toilet Toilet # Voids 2 - Exam General appearance: The patient is alert, oriented, appears in no acute distress. HET: Head is normocephalic and atraumatic. Conjunctiva pink. Sclera anicteric. Neck: Supple without lymphadenopathy. Abdomen: Soft, right upper quadrant nontender, mild tenderness right lower quadrant, nondistended. No guarding or rigidity. Extremities: Normal skin color and turgor. No pedal edema Skin: No rashes, no jaundice Neurological: No focal deficits. Alert and oriented. - Labs CBC & Chem 7: 07/25/23 08:43 07/24/23 08:58 Labs: Abnormal Lab Results - Last 24 Hours (Table) 07/25/23 07/25/23 Range/Units 08:43 08:43 WBC 11.0 H (3.8-10.6) k/uL RBC 4.05 L (4.30-5.90) m/uL Hgb 10.3 L (13.0-17.5) gm/dL Hct 32.9 L (39.0-53.0) % RDW 16.1 H (11.5-15.5) % Lipase 1389 H (23-300) U/L Microbiology - Last 24 Hours (Table) 07/24/23 00:23 Blood Culture - Preliminary Blood Assessment and Plan (1) Acute pancreatitis Narrative/Plan: 38-year-old male with a history of ulcerative colitis diagnosed 2 years ago currently on Entyvio presenting to the emergency department with abdominal pain. CAT scan was consistent for recurrent enterocolitis as well as acute pa ncreatitis. Patient denies previous episodes of pancreatitis however states that he has been having ongoing abdominal pain over the last few months since starting his Wygovy for weight loss. Patient had been having diarrhea and follows with Dr. Campos and underwent recent colonoscopy on 06/20/2023 which at that time had also been on oral steroids. Findings of mild erythema throughout the entire colon up more predominant in the rectum consistent with mild active colitis. Biopsies were positive for mild active inflammation, chronic colitis. Rectum was consistent with chronic proctitis with moderate active inflammation, focal ulceration and focal features suggestive of prolapse change. Patient continues to have lower abdominal pain, bowel movements have been normal, no diarrhea or bloody stools. Did have associated nausea and vomiting, pain may be more consistent with acute pancreatitis. He has been on a new medication for weight loss, likely medication induced pancreatitis. Recommend discontinuing Wygovi. Current Visit: Yes Status: Acute Code(s): K85.90 - ACUTE PANCREATITIS WITHOUT NECROSIS OR INFECTION, UNSP SNOMED Code(s): 009231466 (2) Ulcerative colitis Narrative/Plan: 38-year-old male with a history of ulcerative colitis diagnosed 2 years ago currently on Entyvio presenting to the emergency department with abdominal pain. CAT scan was consistent for recurrent enterocolitis as well as acute pancreatitis. Patient denies previous episodes of pancreatitis however states that he has been having ongoing abdominal pain over the last few months since starting his Wygovy for weight loss. Patient had been having diarrhea and follows with Dr. Tejeda underwent recent colonoscopy on 06/20/2023 which at that time had also been on oral steroids. Findings of mild erythema throughout the entire colon up more predominant in the rectum consistent with mild active colitis. Biopsies were positive for mild active inflammation, chronic colitis. Rectum was consistent with chronic proctitis with moderate active inflammation, focal ulceration and focal features suggestive of prolapse change. Patient continues to have lower abdominal pain, bowel movements have been normal, no diarrhea or bloody stools. Did have associated nausea and vomiting, pain may be more consistent with acute pancreatitis. He has been on a new medication for weight loss, likely medication induced pancreatitis. Recommend discontinuing Wygovi. Current Visit: Yes Status: Acute Code(s): K51.90 - ULCERATIVE COLITIS, UNSPECIFIED, WITHOUT COMPLICATIONS SNOMED Code(s): 40608816 Plan: 1. Advance to low fiber low fat diet 2. Encourage ambulation 3. Patient had recent colonoscopy 06/20/2023, no plans on repeat colonoscopy at this time 4. Agree with discontinuing Wygovy 6. Anticipate discharge in the next 24 hours if patient is able to tolerate diet Thank you for this consultation, we will continue to follow. Dr. Jagruti Campos I agree with the dictator's note, documented as a scribe by Loren Hadley.
== END 2023-07-26 14:34 | disposition home or self-care (01) | DRG 871 ==
LOC: EC 08:35 → 4SSUR 11:26 → 3SCARD 22:35
PROVIDERS: ADMIT Internal Medicine; ATTEND Internal Medicine
PROC: 5A09357 Assistance with Respiratory Ventilation, Less than 24 Consecutive Hours, Continuous Positive Airway Pressure (ICD-10-PCS; principal; 2023-07-24)
DX: A41.9 Sepsis, unspecified organism (principal); K85.30 Drug induced acute pancreatitis without necrosis or infection; K51.20 Ulcerative (chronic) proctitis without complications; K51.90 Ulcerative colitis, unspecified, without complications; F32.A Depression, unspecified; E66.9 Obesity, unspecified; G47.33 Obstructive sleep apnea (adult) (pediatric); T43.226A Underdosing of selective serotonin reuptake inhibitors, initial encounter; F90.9 Attention-deficit hyperactivity disorder, unspecified type; T50.995A Adverse effect of other drugs, medicaments and biological substances, initial encounter; Z20.822 Contact with and (suspected) exposure to COVID-19; Z68.34 Body mass index [BMI] 34.0-34.9, adult; Z28.310 Unvaccinated for COVID-19; Z91.128 Patient's intentional underdosing of medication regimen for other reason; Z79.899 Other long term (current) drug therapy; Z79.85 Long-term (current) use of injectable non-insulin antidiabetic drugs; Z79.52 Long term (current) use of systemic steroids; Z91.041 Radiographic dye allergy status; Z80.0 Family history of malignant neoplasm of digestive organs
CPT/HCPCS: 36415; 71045; 71046; 71275; 74177; 76705; 80048; 80053; 81003; 83605; 83690; 83735; 83880; 84145; 84478; 84484; 85025; 85027; 85379; 85610; 85652; 85730; 86140; 87040; 87636; 93005; 94660; 94760; 96361; 96374; 96375; 96376; 99285